=== PATIENT | female | born 1935 | race Caucasian/White ===

== ENCOUNTER 2016-08-13 16:35 | Inpatient (IN) | payer MEDICARE, OTHER ==
[2016-08-13] MEDS ORDERED: HYDROCODONE/ACETAMINOPHEN 5-325 MG TABLET PO ONE (16:41)
--- NOTE | 2016-08-13 17:00 | ER Document Report ---
ED General - General Stated Complaint: LEG PAIN Mode of Arrival: Medic Information source: Patient, Parent Notes: 81 yr old female presents with bruising to the left thigh of 1 day duration and hip pain. pt from care facility, diagnosed iwth uti 5 days prior, pthas not ambulated since. pt is dnr TRAVEL OUTSIDE OF THE [place] IN LAST 30 DAYS: No - HPI Onset: Last week Onset/Duration: Persistent Quality of pain: Achy Severity: Mild Pain Level: 1 Associated symptoms: None Exacerbated by: Movement Relieved by: Denies Similar symptoms previously: Yes Recently seen / treated by doctor: Yes - Related Data Allergies/Adverse Reactions: No Known Allergies Allergy (Verified 08/08/16 09:13) Past Medical History - Social History Smoking Status: Never Smoker Cigarette use (# per day): No Chew tobacco use (# tins/day): No Smoking Education Provided: No Family History: Reviewed & Not Pertinent - Past Medical History Cardiac Medical History: Reports: Hx Hypertension Pulmonary Medical History: Reports: Hx Pneumonia Psychiatric Medical History: Reports: Hx Dementia Past Surgical History: Reports: Hx Cholecystectomy, Hx Hysterectomy - Immunizations Hx Diphtheria, Pertussis, Tetanus Vaccination: Yes Review of Systems - Review of Systems Notes: REVIEW OF SYSTEMS: CONSTITUTIONAL : Denies fever, chills, or sweats. Denies recent illness. EENT: Denies eye, ear, throat, or mouth pain or symptoms. Denies nasal or sinus congestion or discharge. Denies throat, tongue, or mouth swelling or difficulty swallowing. CARDIOVASCULAR: Denies chest pain. Denies palpitations or racing or irregular heart beat. Denies ankle edema. RESPIRATORY: Denies cough, cold, or chest congestion. Denies shortness of breath, difficulty breathing, or wheezing. GASTROINTESTINAL: Denies abdominal pain or distention. Denies nausea, vomiting , or diarrhea. Denies blood in vomitus, stools, or per rectum. Denies black, tarry stools. Denies constipation. GENITOURINARY: Denies difficulty urinating, painful urination, burning, frequency, blood in urine, or discharge. FEMALE GENITOURINARY: Denies vaginal bleeding, heavy or abnormal periods, irregular periods. Denies vaginal discharge or odor. MUSCULOSKELETAL: unable to ambulate SKIN: Denies rash, lesions or sores. HEMATOLOGIC : bruise of left thigh LYMPHATIC: Denies swollen, enlarged glands. NEUROLOGICAL: Denies confusion or altered mental status. Denies passing out or loss of consciousness. Denies dizziness or lightheadedness. Denies headache. Denies weakness or paralysis or loss of use of either side. Denies problems with gait or speech. Denies sensory loss, numbness, or tingling. Denies seizures. PSYCHIATRIC: Denies anxiety or stress. Denies depression, suicidal ideation, or homicidal ideation. ALL OTHER SYSTEMS REVIEWED AND NEGATIVE. Dictation was performed using [employer] voice recognition software PHYSICAL EXAMINATION: GENERAL: Well-appearing, well-nourished and in no acute distress. HEAD: Atraumatic, normocephalic. EYES: Pupils equal round and reactive to light, extraocular movements intact, conjunctiva are normal. ENT: Nares patent, oropharynx clear without exudates. Moist mucous membranes. NECK: Normal range of motion, supple without lymphadenopathy LUNGS: Breath sounds clear to auscultation bilaterally and equal. No wheezes rales or rhonchi. HEART: Regular rate and rhythm without murmurs ABDOMEN: Soft, nontender, nondistended abdomen. No guarding, no rebound. No masses appreciated. Female : deferred Musculoskeletal:externally rotated and shortened NEUROLOGICAL: Cranial nerves grossly intact. Normal speech, normal gait. Normal sensory, motor exams PSYCH: Normal mood, normal affect. SKIN: echymosis of the left thigh Physical Exam - Vital signs Vitals: Temp Pulse Resp BP Pulse Ox 98.4 F 86 18 122/47 L 96 08/13/16 16:52 08/13/16 16:52 08/13/16 16:52 08/13/16 16:52 08/13/16 16:52 Course - Re-evaluation Re-evalutation: 08/13/16 19:52 xray consistant with intertrochanteric fracture will admit ot hospitalist 08/13/16 19:54 Dr Ramirez ocnsulted - Vital Signs Vital signs: Temp Pulse Resp BP Pulse Ox 98.4 F 86 18 122/47 L 96 08/13/16 16:52 08/13/16 16:52 08/13/16 16:52 08/13/16 16:52 08/13/16 16:52 - Laboratory Result Diagrams: 08/13/16 19:36 08/13/16 18:55 Laboratory results interpreted by me: 08/13/16 08/13/16 18:55 19:36 WBC 12.8 H Hgb 11.6 L Hct 34.4 L RDW 14.7 H Seg Neutrophils % 79.2 H Lymphocytes % 10.3 L Absolute Neutrophils 10.1 H Sodium 151.5 H Chloride 118 H Carbon Dioxide 21 L BUN 65 H Creatinine 1.39 H Est GFR ( Amer) 44 L Est GFR (Non-Af Amer) 36 L Calcium 8.2 L AST 133 H ALT 67 H Total Protein 5.4 L Albumin 3.0 L - Diagnostic Test Radiology reviewed: Image reviewed, Reports reviewed Discharge - Discharge Clinical Impression: Weakness UTI (urinary tract infection) Qualifiers: Urinary tract infection type: site unspecified Hematuria presence: without hematuria Qualified Code(s): N39.0 - Urinary tract infection, site not specified Fracture of hip Qualifiers: Encounter type: initial encounter Fracture type: closed Laterality: left Qualified Code(s): S72.002A - Fracture of unspecified part of neck of left femur , initial encounter for closed fracture Condition: Stable Disposition: ADMITTED INPATIENT Admitting Provider: Hospitalist Unit Admitted: Telemetry Referrals: SETH FERNANDEZ MD [Primary Care Provider] - Follow up as needed
[2016-08-13 19:24] LABS: ALANINE AMINOTRANSFERASE 67 U/L (9-52); ALKALINE PHOSPHATASE 57 U/L (38-126); ANION GAP 13 (5-19); ASPARTATE AMINO TRANSFERASE 133 U/L (14-36); BILIRUBIN,TOTAL 1.3 mg/dL (0.2-1.3); BLOOD UREA NITROGEN 65 mg/dL (7-20); CALCIUM 8.2 mg/dL (8.4-10.2); CARBON DIOXIDE 21 mmol/L (22-30); CHLORIDE 118 mmol/L (98-107); CREATININE RESULT 1.39 mg/dL (0.52-1.25); GLUCOSE 100 mg/dL (75-110); POTASSIUM 4.1 mmol/L (3.6-5.0); SODIUM 151.5 mmol/L (137-145); TOTAL PROTEIN 5.4 g/dL (6.3-8.2)
[2016-08-13] MEDS ORDERED: NORMAL SALINE 1000 ML 1,000 ML IV ONE (19:32)
[2016-08-13 19:49] LABS: ABSOLUTE BASOPHILS # (AUTO) 0.1 10^3/uL (0.0-0.2); ABSOLUTE EOSINOPHILS # (AUTO) 0.1 10^3/uL (0.0-0.6); ABSOLUTE LYMPHOCYTES (AUTO) 1.3 10^3/uL (0.5-4.7); ABSOLUTE MONOCYTES (AUTO) 1.1 10^3/uL (0.1-1.4); ABSOLUTE NEUT (AUTO) 10.1 10^3/uL (1.7-8.2); BASOPHILS % (AUTO) 0.5 % (0-2); EOSINOPHILS % (AUTO) 1.1 % (0-6); HEMATOCRIT 34.4 % (36.0-47.0); HEMOGLOBIN 11.6 g/dL (12.0-15.5); HGB HCT DIFFERENCE 0.4; LYMPHOCYTES % (AUTO) 10.3 % (13-45); MEAN CORPUSCULAR HEMOGLOBIN 30.5 pg (27.0-33.4); MEAN CORPUSCULAR HGB CONC 33.6 g/dL (32.0-36.0); MEAN CORPUSCULAR VOLUME 91 fl (80-97); MONOCYTES % (AUTO) 8.9 % (3-13); RED BLOOD COUNT 3.79 10^6/uL (3.72-5.28); RED CELL DISTRIBUTION WIDTH 14.7 % (11.5-14.0); SEGMENTED NEUTROPHILS % (AUTO) 79.2 % (42-78); WHITE BLOOD COUNT 12.8 10^3/uL (4.0-10.5)
[2016-08-13] MEDS ORDERED: CEFTRIAXONE 1 GM/D5W RTU 50 ML IV ONE (19:55)
[2016-08-13] MEDS ORDERED: LORAZEPAM 1 MG TABLET PO PRN (20:32)
[2016-08-13] MEDS ORDERED: IPRATROPIUM/ALBUTEROL 0.5-2.5 MG/3 ML AMPUL NEB PRN (20:33)
[2016-08-13] MEDS ORDERED: MAGNESIUM HYDROXIDE SUSP 30 ML UDCUP PO PRN (20:33)
[2016-08-13] MEDS ORDERED: ACETAMINOPHEN 325 MG TABLET PO PRN (20:33)
[2016-08-13] MEDS ORDERED: ONDANSETRON HCL INJ/PF 4 MG/2 ML SDV IV PRN (20:33)
[2016-08-13] MEDS ORDERED: DEXTROSE 5%-1/2 NORMAL SALINE 1,000 ML IV SCH (20:45)
[2016-08-13] MEDS ORDERED: ERGOCALCIFEROL (VITAMIN D2) 50000 UNIT (1.25 MG) CAPSULE PO SCH (21:00)
--- NOTE | 2016-08-13 21:28 | EKG REPORT ---
SEVERITY:- BORDERLINE ECG - SINUS RHYTHM BORDERLINE LEFT AXIS DEVIATION BORDERLINE T ABNORMALITIES, ANTERIOR LEADS : Confirmed by: Stefan Galvan MD 13-Aug-2016 21:27:17
[2016-08-13 23:02] LABS: AMORPHOUS SEDIMENT,URINE TRACE /HPF; APPEARANCE,URINE CLOUDY; BILIRUBIN,URINE NEGATIVE (NEGATIVE); GLUCOSE, URINE NEGATIVE (NEGATIVE); KETONES,URINE NEGATIVE (NEGATIVE); LEUKOCYTE ESTERASE,URINE NEGATIVE (NEGATIVE); NITRITE,URINE NEGATIVE (NEGATIVE); PROTEIN,URINE NEGATIVE (NEGATIVE); URINE SPECIFIC GRAVITY 1.028; UROBILINOGEN,URINE NEGATIVE mg/dL (<2.0)
[2016-08-13] MEDS: TRAZODONE HCL 50 MG TABLET PO SCH (23:12)
[2016-08-13] MEDS: DONEPEZIL HCL 5 MG TABLET PO SCH (23:12)
[2016-08-13] MEDS: MEMANTINE HCL 10 MG TABLET PO SCH (23:13)
[2016-08-13] MEDS: HEPARIN SOD (PORCINE) 5,000 UNIT/ML 1 ML SYRINGE SUBCUT SCH (23:13)
[2016-08-14] MEDS ORDERED: INFLUENZA ADLT QUAD (36MOS+) 2016-17 VAC 0.5 ML SYR IM PRN (03:31)
--- NOTE | 2016-08-14 05:42 | PDOC H&P ---
History of Present Illness Admission Date/PCP: 08/13/16 20:33 SETH FERNANDEZ Patient complains of: Left leg pain History of Present Illness: TOYA DINERO is a 81 year old female who is a long-term snf resident , with a history of end-stage dementia essentially nonverbal requiring 100% assistance in ADLs, who at baseline would ambulate but is recently seen in the emergency room approximate 5 days ago for a urinary tract infection and has not subsequently been witnessed to ambulate and found by snf staff today with large ecchymosis and pain localized to the left thigh. Brought to the emergency room for evaluation she's found to have a left-sided hip fracture, mild rhabdomyolysis hypernatremia dehydration and acute renal failure. And is referred to the hospitalist for admission. The patient's daughter is at bedside able to provide history and verifies DO NOT RESUSCITATE status Past Medical History Cardiac Medical History: Reports: Hypertension Pulmonary Medical History: Reports: Pneumonia Psychiatric Medical History: Reports: Dementia Past Surgical History Past Surgical History: Reports: Cholecystectomy, Hysterectomy Social History Smoking Status: Never Smoker Frequency of Alcohol Use: None Hx Recreational Drug Use: No Hx Prescription Drug Abuse: No - Advance Directive Resuscitation Status: Do Not Resuscitate Family History Family History: Other - Dementia Parental Family History Reviewed: Yes Children Family History Reviewed: Yes Sibling(s) Family History Reviewed.: Yes Medication/Allergy Home Medications: Donepezil HCl [Aricept] 10 mg PO QHS 11/11/11 Ergocalciferol (Vitamin D2) [Vitamin D] 50,000 unit PO ASDIR PRN 11/11/11 Memantine HCl [Namenda 10 Mg Tablet] 10 mg PO BID 11/11/11 Cephalexin Monohydrate [Keflex 500 mg Capsule] 500 mg PO BID 10 Days 08/08/16 Cyanocobalamin (Vitamin B-12) [B-12] 500 mcg PO DAILY 08/13/16 Lisinopril 20 mg PO DAILY 08/13/16 Allergies/Adverse Reactions: No Known Allergies Allergy (Verified 08/08/16 09:13) Review of Systems ROS unobtainable: Due to mental status Physical Exam Vital Signs: Temp Pulse Resp BP Pulse Ox 98.3 F 69 15 106/41 L 93 08/14/16 00:22 08/14/16 00:22 08/14/16 00:22 08/14/16 00:22 08/14/16 00:22 Intake & Output 08/12/16 08/13/16 08/14/16 11:59 11:59 11:59 Weight 81.9 kg General appearance: PRESENT: mild distress Head exam: PRESENT: atraumatic, normocephalic Eye exam: PRESENT: conjunctiva pink, EOMI, PERRLA. ABSENT: scleral icterus Ear exam: PRESENT: normal external ear exam Mouth exam: PRESENT: moist, tongue midline Neck exam: ABSENT: carotid bruit, JVD, lymphadenopathy, thyromegaly Respiratory exam: PRESENT: clear to auscultation montse. ABSENT: rales, rhonchi, wheezes Cardiovascular exam: PRESENT: RRR. ABSENT: diastolic murmur, rubs, systolic murmur Pulses: PRESENT: normal dorsalis pedis pul Vascular exam: PRESENT: normal capillary refill GI/Abdominal exam: PRESENT: normal bowel sounds, soft. ABSENT: distended, guarding, mass, organolmegaly, rebound, tenderness Rectal exam: PRESENT: deferred Extremities exam: PRESENT: other - Left thigh ecchymosis and pain. external rotation of left leg Neurological exam: PRESENT: alert, CN II-XII grossly intact. ABSENT: oriented to person, oriented to place, oriented to time, oriented to situation Psychiatric exam: PRESENT: other - Sedated after analgesic Skin exam: PRESENT: dry. ABSENT: abrasion, cyanosis, jaundice, skin tears Adult Front & Back Image: 1 - Ecchymosis Results Laboratory Results: 08/13/16 22:09 Urine Color DARK YELLOW Urine Appearance CLOUDY Urine pH 5.0 Ur Specific [place] 1.028 Urine Protein NEGATIVE Urine Glucose (UA) NEGATIVE Urine Ketones NEGATIVE Urine Blood NEGATIVE Urine Nitrite NEGATIVE Ur Leukocyte Esterase NEGATIVE Urine WBC (Auto) 3 Impressions: Chest X-Ray 08/13/16 00:00 IMPRESSION: NO ACUTE RADIOGRAPHIC FINDING IN THE CHEST. Femur X-Ray 08/13/16 16:40 IMPRESSION: INTERTROCHANTERIC FEMUR FRACTURE LEFT HIP. Hip X-Ray 08/13/16 16:40 IMPRESSION: INTERTROCHANTERIC FEMUR FRACTURE LEFT HIP. Assessment & Plan - Diagnosis (1) Hip fracture Qualifiers: Encounter type: initial encounter Fracture type: closed Laterality : left Qualified Code(s): S72.002A - Fracture of unspecified part of neck of left femur, initial encounter for closed fracture Is this a current diagnosis for this admission?: YesPlan: Symptomatically management and orthopedic consultation (2) Acute renal failure Is this a current diagnosis for this admission?: YesPlan: Appears prerenal I'll avoid nephrotoxic meds and doses ,initiated fluid challenge and reevaluate chemistry (3) Hypernatremia Plan: Secondary to prerenal is a PABLITO a patient is unable to meet her nutritional or fluid requirements by mouth. She'll receive half-normal saline and reevaluation of chemistry every 12 hours (4) Dementia Is this a current diagnosis for this admission?: YesPlan: Advanced dementia unable to participate in physical therapy at times requiring sedation for severe delirium at baseline - Time Time Spent: 50 to 70 Minutes
[2016-08-14 05:54] LABS: ABSOLUTE EOSINOPHILS # (AUTO) 0.2 10^3/uL (0.0-0.6); ABSOLUTE LYMPHOCYTES (AUTO) 1.5 10^3/uL (0.5-4.7); ABSOLUTE NEUT (AUTO) 7.6 10^3/uL (1.7-8.2); BASOPHILS % (AUTO) 0.4 % (0-2); EOSINOPHILS % (AUTO) 2.4 % (0-6); HEMOGLOBIN 10.9 g/dL (12.0-15.5); HGB HCT DIFFERENCE 0.7; LYMPHOCYTES % (AUTO) 14.5 % (13-45); MEAN CORPUSCULAR HEMOGLOBIN 31.3 pg (27.0-33.4); MEAN CORPUSCULAR HGB CONC 34.1 g/dL (32.0-36.0); MEAN CORPUSCULAR VOLUME 92 fl (80-97); MONOCYTES % (AUTO) 9.3 % (3-13); RED BLOOD COUNT 3.49 10^6/uL (3.72-5.28); RED CELL DISTRIBUTION WIDTH 14.8 % (11.5-14.0); SEGMENTED NEUTROPHILS % (AUTO) 73.4 % (42-78); WHITE BLOOD COUNT 10.4 10^3/uL (4.0-10.5)
[2016-08-14] MEDS: HEPARIN SOD (PORCINE) 5,000 UNIT/ML 1 ML SYRINGE SUBCUT SCH ×3 (06:08→21:53)
[2016-08-14 06:28] LABS: ANION GAP 11 (5-19); BLOOD UREA NITROGEN 59 mg/dL (7-20); CALCIUM 7.5 mg/dL (8.4-10.2); CARBON DIOXIDE 24 mmol/L (22-30); CHLORIDE 112 mmol/L (98-107); CREATININE RESULT 1.23 mg/dL (0.52-1.25); GLUCOSE 94 mg/dL (75-110); POTASSIUM 3.7 mmol/L (3.6-5.0)
[2016-08-14] MEDS: VALSARTAN 40 MG TABLET PO SCH (11:24)
[2016-08-14] MEDS: CYANOCOBALAMIN (VITAMIN B-12) 1,000 MCG TABLET PO SCH (11:26)
[2016-08-14] MEDS: MEMANTINE HCL 10 MG TABLET PO SCH ×2 (11:27→21:52)
[2016-08-14] MEDS: DOCUSATE SODIUM 100 MG CAPSULE PO SCH ×2 (11:27→18:58)
--- NOTE | 2016-08-14 11:50 | PDOC PROGRESS REPORT ---
Subjective Progress Note for:: 08/14/16 Subjective:: Patient seen on morning rounds. She is presently resting comfortably in bed. Her daughter is at bedside. She does not respond to questions verbally when asked. Unable to do review of systems due to patient's mentation. Patient has not been seen by orthopedic surgery yet. Physical Exam Vital Signs: Temp Pulse Resp BP Pulse Ox 98.3 F 62 16 106/41 L 95 08/14/16 00:22 08/14/16 09:35 08/14/16 09:35 08/14/16 00:22 08/14/16 09:35 Intake & Output 08/13/16 08/14/16 08/15/16 06:59 06:59 06:59 Weight 82.6 kg General appearance: PRESENT: no acute distress, well-developed, well-nourished Head exam: PRESENT: atraumatic Eye exam: PRESENT: conjunctiva pink, EOMI, PERRLA. ABSENT: scleral icterus Ear exam: PRESENT: normal external ear exam Mouth exam: PRESENT: moist, tongue midline Neck exam: ABSENT: carotid bruit, JVD, lymphadenopathy, thyromegaly Respiratory exam: PRESENT: clear to auscultation montse. ABSENT: rales, rhonchi, wheezes Cardiovascular exam: PRESENT: RRR. ABSENT: diastolic murmur, rubs, systolic murmur Pulses: PRESENT: normal dorsalis pedis pul Vascular exam: PRESENT: normal capillary refill GI/Abdominal exam: PRESENT: normal bowel sounds, soft. ABSENT: distended, guarding, mass, organolmegaly, rebound, tenderness Rectal exam: PRESENT: deferred Extremities exam: PRESENT: other - Bruising over medial left thigh which is resolving. Left lower extremity externally rotated. ABSENT: calf tenderness, clubbing, pedal edema Neurological exam: PRESENT: alert, altered, CN II-XII grossly intact, other - Patient is not responding verbally. Daughter states at times she does Psychiatric exam: PRESENT: appropriate affect, normal mood. ABSENT: homicidal ideation, suicidal ideation Skin exam: PRESENT: dry, intact, warm. ABSENT: cyanosis, rash Results Laboratory Results: 08/14/16 05:20 08/14/16 05:20 08/13/16 08/14/16 08/14/16 22:09 05:20 05:20 WBC 10.4 RBC 3.49 L Hgb 10.9 L Hct 32.0 L MCV 92 MCH 31.3 MCHC 34.1 RDW 14.8 H Plt Count 172 Seg Neutrophils % 73.4 Lymphocytes % 14.5 Monocytes % 9.3 Eosinophils % 2.4 Basophils % 0.4 Absolute Neutrophils 7.6 Absolute Lymphocytes 1.5 Absolute Monocytes 1.0 Absolute Eosinophils 0.2 Absolute Basophils 0.0 Sodium 147.0 H Potassium 3.7 Chloride 112 H Carbon Dioxide 24 Anion Gap 11 BUN 59 H Creatinine 1.23 Est GFR ( Amer) 51 L Est GFR (Non-Af Amer) 42 L Glucose 94 Calcium 7.5 L Urine Color DARK YELLOW Urine Appearance CLOUDY Urine pH 5.0 Ur Specific [place] 1.028 Urine Protein NEGATIVE Urine Glucose (UA) NEGATIVE Urine Ketones NEGATIVE Urine Blood NEGATIVE Urine Nitrite NEGATIVE Ur Leukocyte Esterase NEGATIVE Urine WBC (Auto) 3 08/14/16 10:30 CK-MB (CK-2) 3.67 Impressions: Chest X-Ray 08/13/16 00:00 IMPRESSION: NO ACUTE RADIOGRAPHIC FINDING IN THE CHEST. Femur X-Ray 08/13/16 16:40 IMPRESSION: INTERTROCHANTERIC FEMUR FRACTURE LEFT HIP. Hip X-Ray 08/13/16 16:40 IMPRESSION: INTERTROCHANTERIC FEMUR FRACTURE LEFT HIP. Assessment & Plan - Diagnosis (1) Fracture, intertrochanteric, left femur Qualifiers: Encounter type: initial encounter Fracture type: closed Qualified Code(s): S72.142A - Displaced intertrochanteric fracture of left femur , initial encounter for closed fracture Is this a current diagnosis for this admission?: YesPlan: Awaiting orthopedic referral. Patient does not appear to be in pain at the present time. (2) Hypernatremia Is this a current diagnosis for this admission?: YesPlan: Appears to be from dehydration. Hydrating with D51//2 NS will continue to monitor. 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
--- NOTE | 2016-08-14 13:08 | PDOC CONSULTATION ---
Consultation Consult Date: 08/14/16 Attending physician:: ALONDRA COLE Consult reason:: Left hip fx History of Present Illness Admission Date/PCP: 08/13/16 20:33 SETH FERNANDEZ Patient complains of: left hip pain History of Present Illness: TOYA DINERO is a 81 year old female who is a long-term alf resident , with a history of end-stage dementia essentially nonverbal requiring 100% assistance in ADLs. According to the patient's son she was ambulatory but required maximal assistance and has not independently for years. Patient was then found by the alf staff with bruising and pain localized to the left hip. She was subsequently brought to the emergency room for evaluation and found to have a left-sided hip fracture. Patient was admitted by the hospitalist. Unable to obtain full history of present illness given patient's mental status. Past Medical History Cardiac Medical History: Reports: Hypertension Pulmonary Medical History: Reports: Pneumonia Psychiatric Medical History: Reports: Dementia Past Surgical History Past Surgical History: Reports: Cholecystectomy, Hysterectomy Social History Smoking Status: Never Smoker Frequency of Alcohol Use: None Hx Recreational Drug Use: No Hx Prescription Drug Abuse: No - Advance Directive Resuscitation Status: Do Not Resuscitate Family History Family History: Other - Dementia Parental Family History Reviewed: No Children Family History Reviewed: Unknown Sibling(s) Family History Reviewed.: Unknown Medication/Allergy Home Medications: Donepezil HCl [Aricept] 10 mg PO QHS 11/11/11 Ergocalciferol (Vitamin D2) [Vitamin D] 50,000 unit PO ASDIR PRN 11/11/11 Memantine HCl [Namenda 10 Mg Tablet] 10 mg PO BID 11/11/11 Cephalexin Monohydrate [Keflex 500 mg Capsule] 500 mg PO BID 10 Days 08/08/16 Cyanocobalamin (Vitamin B-12) [B-12] 500 mcg PO DAILY 08/13/16 Lisinopril 20 mg PO DAILY 08/13/16 Allergies/Adverse Reactions: No Known Allergies Allergy (Verified 08/08/16 09:13) Review of Systems ROS unobtainable: Due to mental status Physical Exam Vital Signs: Temp Pulse Resp BP Pulse Ox 98.3 F 62 16 106/41 L 95 08/14/16 00:22 08/14/16 09:35 08/14/16 09:35 08/14/16 00:22 08/14/16 09:35 Intake & Output 08/13/16 08/14/16 08/15/16 06:59 06:59 06:59 Weight 82.6 kg General appearance: PRESENT: no acute distress, thin Head exam: PRESENT: atraumatic, normocephalic Eye exam: PRESENT: EOMI Ear exam: PRESENT: normal external ear exam Mouth exam: PRESENT: dry mucosa Teeth exam: PRESENT: poor dentation Respiratory exam: PRESENT: unlabored Cardiovascular exam: PRESENT: RRR Pulses: PRESENT: normal dorsalis pedis pul Vascular exam: PRESENT: normal capillary refill GI/Abdominal exam: PRESENT: soft Musculoskeletal exam: PRESENT: other - Left lower extremity: Shortened externally rotated. Notable ecchymosis throughout the thigh. Compartments soft and compressible no sign of compartment syndrome. Unable to elicit pain with flexion or internal rotation. Minimal pain with range of motion. Does have pain with terminal internal rotation. Neurological exam: PRESENT: other - Disoriented to time, place and situation Results Laboratory Results: 08/14/16 05:20 08/14/16 05:20 08/13/16 08/14/16 08/14/16 22:09 05:20 05:20 WBC 10.4 RBC 3.49 L Hgb 10.9 L Hct 32.0 L MCV 92 MCH 31.3 MCHC 34.1 RDW 14.8 H Plt Count 172 Seg Neutrophils % 73.4 Lymphocytes % 14.5 Monocytes % 9.3 Eosinophils % 2.4 Basophils % 0.4 Absolute Neutrophils 7.6 Absolute Lymphocytes 1.5 Absolute Monocytes 1.0 Absolute Eosinophils 0.2 Absolute Basophils 0.0 Sodium 147.0 H Potassium 3.7 Chloride 112 H Carbon Dioxide 24 Anion Gap 11 BUN 59 H Creatinine 1.23 Est GFR ( Amer) 51 L Est GFR (Non-Af Amer) 42 L Glucose 94 Calcium 7.5 L Urine Color DARK YELLOW Urine Appearance CLOUDY Urine pH 5.0 Ur Specific [place] 1.028 Urine Protein NEGATIVE Urine Glucose (UA) NEGATIVE Urine Ketones NEGATIVE Urine Blood NEGATIVE Urine Nitrite NEGATIVE Ur Leukocyte Esterase NEGATIVE Urine WBC (Auto) 3 Impressions: Chest X-Ray 08/13/16 00:00 IMPRESSION: NO ACUTE RADIOGRAPHIC FINDING IN THE CHEST. Femur X-Ray 08/13/16 16:40 IMPRESSION: INTERTROCHANTERIC FEMUR FRACTURE LEFT HIP. Hip X-Ray 08/13/16 16:40 IMPRESSION: INTERTROCHANTERIC FEMUR FRACTURE LEFT HIP. Assessment & Plan - Diagnosis (1) Fracture, intertrochanteric, left femur Qualifiers: Encounter type: initial encounter Fracture type: closed Qualified Code(s): S72.142A - Displaced intertrochanteric fracture of left femur , initial encounter for closed fracture Is this a current diagnosis for this admission?: YesPlan: I have discussed the case with the patient's family given the patient's dementia and activity surgical treatment will be indicated for pain relief and likely not function. Thus the fact that she has minimal to no discomfort with hip manipulation I do not feel surgical intervention is likely beneficial in this instance however if we have her evaluated by physical therapy and he noticed significant pain limiting ability to perform transfers consideration can made for surgical intervention at that time. Current plan is to proceed with conservative treatment and nonoperative management.
[2016-08-14] MEDS: TRAZODONE HCL 50 MG TABLET PO SCH (21:53)
[2016-08-14] MEDS: DONEPEZIL HCL 5 MG TABLET PO SCH (21:53)
[2016-08-15 04:41] LABS: ABSOLUTE EOSINOPHILS # (AUTO) 0.3 10^3/uL (0.0-0.6); ABSOLUTE LYMPHOCYTES (AUTO) 1.6 10^3/uL (0.5-4.7); ABSOLUTE MONOCYTES (AUTO) 0.9 10^3/uL (0.1-1.4); ABSOLUTE NEUT (AUTO) 6.8 10^3/uL (1.7-8.2); BASOPHILS % (AUTO) 0.4 % (0-2); HEMATOCRIT 28.9 % (36.0-47.0); HEMOGLOBIN 9.9 g/dL (12.0-15.5); HGB HCT DIFFERENCE 0.8; MEAN CORPUSCULAR HEMOGLOBIN 31.1 pg (27.0-33.4); MEAN CORPUSCULAR HGB CONC 34.2 g/dL (32.0-36.0); MEAN CORPUSCULAR VOLUME 91 fl (80-97); MONOCYTES % (AUTO) 8.9 % (3-13); RED BLOOD COUNT 3.18 10^6/uL (3.72-5.28); RED CELL DISTRIBUTION WIDTH 14.5 % (11.5-14.0); SEGMENTED NEUTROPHILS % (AUTO) 70.7 % (42-78); WHITE BLOOD COUNT 9.6 10^3/uL (4.0-10.5)
[2016-08-15 05:09] LABS: ANION GAP 8 (5-19); CALCIUM 7.5 mg/dL (8.4-10.2); CARBON DIOXIDE 26 mmol/L (22-30); CHLORIDE 109 mmol/L (98-107); CREATININE RESULT 0.99 mg/dL (0.52-1.25); GLUCOSE 95 mg/dL (75-110); POTASSIUM 3.7 mmol/L (3.6-5.0); SODIUM 142.7 mmol/L (137-145)
[2016-08-15 05:30] LABS: BLOOD UREA NITROGEN 35 mg/dL (7-20)
[2016-08-15] MEDS: HEPARIN SOD (PORCINE) 5,000 UNIT/ML 1 ML SYRINGE SUBCUT SCH ×3 (06:10→21:57)
--- NOTE | 2016-08-15 07:22 | PDOC PROGRESS REPORT ---
Subjective Progress Note for:: 08/15/16 Subjective:: Patient seen and evaluated this morning. Lying in bed comfortably. Family at bedside. He states she has not been having any pain or discomfort. Has yet to undergo physical therapy. Physical Exam Vital Signs: Temp Pulse Resp BP Pulse Ox 98.6 F 67 20 119/57 L 93 08/15/16 04:00 08/15/16 04:00 08/15/16 04:00 08/15/16 04:00 08/15/16 04:00 Intake & Output 08/14/16 08/15/16 08/16/16 06:59 06:59 06:59 Intake Total 2200 Balance 2200 Weight 82.6 kg Musculoskeletal exam: PRESENT: other - Left lower extremity shortened and externally rotated. Negative logroll. No pain with range of motion. Cap refill less than 2 seconds. Unable to assess neurologic status secondary to patient's mental status. Results Laboratory Results: 08/15/16 04:29 08/15/16 04:29 08/15/16 08/15/16 04:29 04:29 WBC 9.6 RBC 3.18 L Hgb 9.9 L Hct 28.9 L MCV 91 MCH 31.1 MCHC 34.2 RDW 14.5 H Plt Count 153 Seg Neutrophils % 70.7 Lymphocytes % 17.0 Monocytes % 8.9 Eosinophils % 3.0 Basophils % 0.4 Absolute Neutrophils 6.8 Absolute Lymphocytes 1.6 Absolute Monocytes 0.9 Absolute Eosinophils 0.3 Absolute Basophils 0.0 Sodium 142.7 Potassium 3.7 Chloride 109 H Carbon Dioxide 26 Anion Gap 8 BUN 35 H D Creatinine 0.99 Est GFR ( Amer) > 60 Est GFR (Non-Af Amer) 54 L Glucose 95 Calcium 7.5 L 08/14/16 10:30 CK-MB (CK-2) 3.67 Impressions: Chest X-Ray 08/13/16 00:00 IMPRESSION: NO ACUTE RADIOGRAPHIC FINDING IN THE CHEST. Femur X-Ray 08/13/16 16:40 IMPRESSION: INTERTROCHANTERIC FEMUR FRACTURE LEFT HIP. Hip X-Ray 08/13/16 16:40 IMPRESSION: INTERTROCHANTERIC FEMUR FRACTURE LEFT HIP. Assessment & Plan - Diagnosis (1) Fracture, intertrochanteric, left femur Qualifiers: Encounter type: initial encounter Fracture type: closed Qualified Code(s): S72.142A - Displaced intertrochanteric fracture of left femur , initial encounter for closed fracture Is this a current diagnosis for this admission?: YesPlan: Patient continues to demonstrate no discomfort in her left hip despite intertrochanteric fracture at this point I have recommended nonoperative treatment given her mental status and nonambulatory status compliant with her lack of discomfort. I have discussed this in detail with the family who are in agreement with the current plan.
[2016-08-15] MEDS: DOCUSATE SODIUM 100 MG CAPSULE PO SCH ×3 (10:31→22:00)
[2016-08-15] MEDS: CYANOCOBALAMIN (VITAMIN B-12) 1,000 MCG TABLET PO SCH (10:31)
[2016-08-15] MEDS: MEMANTINE HCL 10 MG TABLET PO SCH ×2 (10:31→22:00)
[2016-08-15] MEDS: VALSARTAN 40 MG TABLET PO SCH (10:32)
--- NOTE | 2016-08-15 11:57 | PDOC PROGRESS REPORT ---
Subjective Progress Note for:: 08/15/16 Subjective:: Patient seen on morning rounds. She is presently resting comfortably in bed. Her daughter is at bedside. She does not respond to questions verbally when asked. Unable to do review of systems due to patient's mentation. Patient was seen by Dr Ramirez, orthopedic surgery, and wants patient to have PT and see if she has any pain. She presently does not appear to have at rest Physical Exam Vital Signs: Temp Pulse Resp BP Pulse Ox 97.2 F 72 16 133/50 H 95 08/15/16 08:00 08/15/16 09:30 08/15/16 09:30 08/15/16 08:00 08/15/16 09:30 Intake & Output 08/14/16 08/15/16 08/16/16 06:59 06:59 06:59 Intake Total 2300 Output Total 150 Balance 2150 Weight 82.6 kg 83.3 kg General appearance: PRESENT: no acute distress, obese, well-developed, well- nourished Head exam: PRESENT: atraumatic, normocephalic Eye exam: PRESENT: conjunctiva pink, EOMI, PERRLA. ABSENT: scleral icterus Ear exam: PRESENT: normal external ear exam Mouth exam: PRESENT: moist, tongue midline Neck exam: ABSENT: carotid bruit, JVD, lymphadenopathy, thyromegaly Respiratory exam: PRESENT: clear to auscultation montse. ABSENT: rales, rhonchi, wheezes Cardiovascular exam: PRESENT: RRR. ABSENT: diastolic murmur, rubs, systolic murmur Pulses: PRESENT: normal dorsalis pedis pul Vascular exam: PRESENT: normal capillary refill GI/Abdominal exam: PRESENT: normal bowel sounds, soft. ABSENT: distended, guarding, mass, organolmegaly, rebound, tenderness Rectal exam: PRESENT: deferred Extremities exam: PRESENT: calf tenderness Neurological exam: PRESENT: altered, awake, CN II-XII grossly intact. ABSENT: motor sensory deficit Psychiatric exam: PRESENT: appropriate affect, normal mood. ABSENT: homicidal ideation, suicidal ideation Skin exam: PRESENT: dry, intact, warm. ABSENT: cyanosis, rash Results Laboratory Results: 08/15/16 04:29 08/15/16 04:29 08/15/16 08/15/16 04:29 04:29 WBC 9.6 RBC 3.18 L Hgb 9.9 L Hct 28.9 L MCV 91 MCH 31.1 MCHC 34.2 RDW 14.5 H Plt Count 153 Seg Neutrophils % 70.7 Lymphocytes % 17.0 Monocytes % 8.9 Eosinophils % 3.0 Basophils % 0.4 Absolute Neutrophils 6.8 Absolute Lymphocytes 1.6 Absolute Monocytes 0.9 Absolute Eosinophils 0.3 Absolute Basophils 0.0 Sodium 142.7 Potassium 3.7 Chloride 109 H Carbon Dioxide 26 Anion Gap 8 BUN 35 H D Creatinine 0.99 Est GFR ( Amer) > 60 Est GFR (Non-Af Amer) 54 L Glucose 95 Calcium 7.5 L 08/14/16 03:10 Nasophary ([facility] Only) MRSA Surveillance Culture - Final NO MRSA RECOVERED 08/14/16 08/15/16 10:30 08:20 CK-MB (CK-2) 3.67 2.06 Impressions: Chest X-Ray 08/13/16 00:00 IMPRESSION: NO ACUTE RADIOGRAPHIC FINDING IN THE CHEST. Femur X-Ray 08/13/16 16:40 IMPRESSION: INTERTROCHANTERIC FEMUR FRACTURE LEFT HIP. Hip X-Ray 08/13/16 16:40 IMPRESSION: INTERTROCHANTERIC FEMUR FRACTURE LEFT HIP. Assessment & Plan - Diagnosis (1) Fracture, intertrochanteric, left femur Qualifiers: Encounter type: initial encounter Fracture type: closed Qualified Code(s): S72.142A - Displaced intertrochanteric fracture of left femur , initial encounter for closed fracture Is this a current diagnosis for this admission?: Yes (2) Hypernatremia Is this a current diagnosis for this admission?: YesPlan: Appears to be from dehydration. Hydrating with D51//2 NS will continue to monitor. 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 Transfuse if hgb<8.0 - Time Time Spent with patient: 25-34 minutes Critical Time spent with patient: 15-24 minutes Medications reviewed and adjusted accordingly: Yes Anticipated discharge: SNF
[2016-08-15] MEDS ORDERED: LORAZEPAM 1 MG TABLET PO PRN (12:57)
[2016-08-15] MEDS ORDERED: POLYETHYLENE GLYCOL 3350 POWDER 17 GM/1 PACKET PO PRN (19:03)
[2016-08-15] MEDS: TRAZODONE HCL 50 MG TABLET PO SCH (22:00)
[2016-08-15] MEDS: DONEPEZIL HCL 5 MG TABLET PO SCH (22:00)
[2016-08-16 06:57] LABS: ABSOLUTE EOSINOPHILS # (AUTO) 0.2 10^3/uL (0.0-0.6); ABSOLUTE LYMPHOCYTES (AUTO) 1.4 10^3/uL (0.5-4.7); ABSOLUTE MONOCYTES (AUTO) 0.8 10^3/uL (0.1-1.4); ABSOLUTE NEUT (AUTO) 7.3 10^3/uL (1.7-8.2); BASOPHILS % (AUTO) 0.3 % (0-2); EOSINOPHILS % (AUTO) 2.3 % (0-6); HEMATOCRIT 30.2 % (36.0-47.0); HEMOGLOBIN 10.3 g/dL (12.0-15.5); HGB HCT DIFFERENCE 0.7; LYMPHOCYTES % (AUTO) 14.4 % (13-45); MEAN CORPUSCULAR HEMOGLOBIN 30.8 pg (27.0-33.4); MEAN CORPUSCULAR HGB CONC 34.2 g/dL (32.0-36.0); MEAN CORPUSCULAR VOLUME 90 fl (80-97); RED BLOOD COUNT 3.35 10^6/uL (3.72-5.28); RED CELL DISTRIBUTION WIDTH 14.4 % (11.5-14.0); WHITE BLOOD COUNT 9.7 10^3/uL (4.0-10.5)
[2016-08-16] MEDS: HEPARIN SOD (PORCINE) 5,000 UNIT/ML 1 ML SYRINGE SUBCUT SCH ×3 (06:57→22:42)
[2016-08-16 07:03] LABS: ANION GAP 8 (5-19); BLOOD UREA NITROGEN 23 mg/dL (7-20); CALCIUM 7.9 mg/dL (8.4-10.2); CARBON DIOXIDE 26 mmol/L (22-30); CHLORIDE 106 mmol/L (98-107); CREATININE RESULT 0.81 mg/dL (0.52-1.25); GLUCOSE 91 mg/dL (75-110); POTASSIUM 3.6 mmol/L (3.6-5.0); SODIUM 140.2 mmol/L (137-145)
--- NOTE | 2016-08-16 08:20 | PDOC PROGRESS REPORT ---
Subjective Progress Note for:: 08/16/16 Subjective:: Patient seen and evaluated this morning. Family at bedside. They state she had minimal to no discomfort with physical therapy does have some difficulty maneuvering herself secondary to deconditioning. Physical Exam Vital Signs: Temp Pulse Resp BP Pulse Ox 98.9 F 72 20 114/32 L 100 08/16/16 04:00 08/16/16 04:00 08/16/16 04:00 08/16/16 04:00 08/16/16 04:00 Intake & Output 08/15/16 08/16/16 08/17/16 06:59 06:59 06:59 Intake Total 2300 693 Output Total 150 500 Balance 2150 193 Weight 83.3 kg 91.2 kg Musculoskeletal exam: PRESENT: other - Left lower extremity: short and internally rotated patient lying on her right side today. Mild pain with terminal flexion and internal rotation. No evidence of skin breakdown. Results Laboratory Results: 08/16/16 05:41 08/16/16 05:41 08/16/16 08/16/16 05:41 05:41 WBC 9.7 RBC 3.35 L Hgb 10.3 L Hct 30.2 L MCV 90 MCH 30.8 MCHC 34.2 RDW 14.4 H Plt Count 169 Seg Neutrophils % 75.0 Lymphocytes % 14.4 Monocytes % 8.0 Eosinophils % 2.3 Basophils % 0.3 Absolute Neutrophils 7.3 Absolute Lymphocytes 1.4 Absolute Monocytes 0.8 Absolute Eosinophils 0.2 Absolute Basophils 0.0 Sodium 140.2 Potassium 3.6 Chloride 106 Carbon Dioxide 26 Anion Gap 8 BUN 23 H Creatinine 0.81 Est GFR ( Amer) > 60 Est GFR (Non-Af Amer) > 60 Glucose 91 Calcium 7.9 L 08/14/16 03:10 Nasophary ([facility] Only) MRSA Surveillance Culture - Final NO MRSA RECOVERED 08/14/16 08/15/16 10:30 08:20 CK-MB (CK-2) 3.67 2.06 Impressions: Chest X-Ray 08/13/16 00:00 IMPRESSION: NO ACUTE RADIOGRAPHIC FINDING IN THE CHEST. Femur X-Ray 08/13/16 16:40 IMPRESSION: INTERTROCHANTERIC FEMUR FRACTURE LEFT HIP. Hip X-Ray 08/13/16 16:40 IMPRESSION: INTERTROCHANTERIC FEMUR FRACTURE LEFT HIP. Assessment & Plan - Diagnosis (1) Fracture, intertrochanteric, left femur Qualifiers: Encounter type: initial encounter Fracture type: closed Qualified Code(s): S72.142A - Displaced intertrochanteric fracture of left femur , initial encounter for closed fracture Is this a current diagnosis for this admission?: YesPlan: Patient was able to tolerate physical therapy with minimal to no discomfort thus I recommend proceeding with her current plan which is conservative treatment. Patient's family understands she will be nonambulatory which she was fairly nonambulatory prior to her most recent injury. Patient will continue with physical therapy. Patient may follow-up in the office with me in 2 weeks. Discharge to skilled facility when bed available
[2016-08-16] MEDS: DOCUSATE SODIUM 100 MG CAPSULE PO SCH ×2 (10:40→22:47)
[2016-08-16] MEDS: VALSARTAN 40 MG TABLET PO SCH (10:40)
[2016-08-16] MEDS: MEMANTINE HCL 10 MG TABLET PO SCH ×2 (10:41→22:48)
[2016-08-16] MEDS: CYANOCOBALAMIN (VITAMIN B-12) 1,000 MCG TABLET PO SCH (10:41)
--- NOTE | 2016-08-16 18:02 | PDOC PROGRESS REPORT ---
Subjective Progress Note for:: 08/16/16 Subjective:: Patient seen on morning rounds. She is presently resting comfortably in bed. Her daughter is at bedside. She does not respond to questions verbally when asked. Unable to do review of systems due to patient's mentation. Patient was seen by Dr Ramirez. Patient has had PT with no visible signs of pain with movement. She presently does not appear to have pain at rest Physical Exam Vital Signs: Temp Pulse Resp BP Pulse Ox 99.5 F 80 12 132/74 H 100 08/16/16 12:00 08/16/16 14:00 08/16/16 12:00 08/16/16 12:00 08/16/16 12:00 Intake & Output 08/15/16 08/16/16 08/17/16 06:59 06:59 06:59 Intake Total 2300 693 Output Total 150 500 Balance 2150 193 Weight 83.3 kg 91.2 kg General appearance: PRESENT: no acute distress, obese, well-developed, well- nourished Head exam: PRESENT: atraumatic, normocephalic Eye exam: PRESENT: conjunctiva pink, EOMI, PERRLA. ABSENT: scleral icterus Ear exam: PRESENT: normal external ear exam Mouth exam: PRESENT: dry mucosa Neck exam: ABSENT: carotid bruit, JVD, lymphadenopathy, thyromegaly Respiratory exam: PRESENT: clear to auscultation montse. ABSENT: rales, rhonchi, wheezes Pulses: PRESENT: normal dorsalis pedis pul GI/Abdominal exam: PRESENT: normal bowel sounds, soft. ABSENT: distended, guarding, mass, organolmegaly, rebound, tenderness Extremities exam: PRESENT: other - Left lower extremity shortened and externally rotated. ABSENT: calf tenderness, clubbing, pedal edema Neurological exam: PRESENT: altered, awake, CN II-XII grossly intact Psychiatric exam: PRESENT: flat affect Skin exam: PRESENT: dry, intact, warm. ABSENT: cyanosis, rash Results Laboratory Results: 08/16/16 05:41 08/16/16 05:41 08/16/16 08/16/16 05:41 05:41 WBC 9.7 RBC 3.35 L Hgb 10.3 L Hct 30.2 L MCV 90 MCH 30.8 MCHC 34.2 RDW 14.4 H Plt Count 169 Seg Neutrophils % 75.0 Lymphocytes % 14.4 Monocytes % 8.0 Eosinophils % 2.3 Basophils % 0.3 Absolute Neutrophils 7.3 Absolute Lymphocytes 1.4 Absolute Monocytes 0.8 Absolute Eosinophils 0.2 Absolute Basophils 0.0 Sodium 140.2 Potassium 3.6 Chloride 106 Carbon Dioxide 26 Anion Gap 8 BUN 23 H Creatinine 0.81 Est GFR ( Amer) > 60 Est GFR (Non-Af Amer) > 60 Glucose 91 Calcium 7.9 L 08/14/16 08/15/16 10:30 08:20 CK-MB (CK-2) 3.67 2.06 Impressions: Chest X-Ray 08/13/16 00:00 IMPRESSION: NO ACUTE RADIOGRAPHIC FINDING IN THE CHEST. Femur X-Ray 08/13/16 16:40 IMPRESSION: INTERTROCHANTERIC FEMUR FRACTURE LEFT HIP. Hip X-Ray 08/13/16 16:40 IMPRESSION: INTERTROCHANTERIC FEMUR FRACTURE LEFT HIP. Assessment & Plan - Diagnosis (1) Fracture, intertrochanteric, left femur Qualifiers: Encounter type: initial encounter Fracture type: closed Qualified Code(s): S72.142A - Displaced intertrochanteric fracture of left femur , initial encounter for closed fracture Is this a current diagnosis for this admission?: YesPlan: Dr Ramirez has seen patient for orthopedics. Patient is mostly non ambulatory prior to fracture. Patient has no obvious sign of pain at rest or with PT. He therefore will defer surgical repair. Family is in agreement. Patient will not be able to return to [facility]. Discharge planning working on placement. (2) Hypernatremia Is this a current diagnosis for this admission?: YesPlan: Appears to be from dehydration. 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 This has been stable - Time Time Spent with patient: 25-34 minutes Critical Time spent with patient: 15-24 minutes Medications reviewed and adjusted accordingly: Yes Anticipated discharge: SNF Within: when bed available
[2016-08-16] MEDS: TRAZODONE HCL 50 MG TABLET PO SCH (22:43)
[2016-08-16] MEDS: DONEPEZIL HCL 5 MG TABLET PO SCH (22:44)
[2016-08-17] MEDS: HEPARIN SOD (PORCINE) 5,000 UNIT/ML 1 ML SYRINGE SUBCUT SCH ×2 (06:01→15:08)
--- NOTE | 2016-08-17 09:47 | PDOC PROGRESS REPORT ---
Subjective Progress Note for:: 08/17/16 Subjective:: Patient seen and evaluated this morning. Lying in bed comfortably. Patient being fed by family who states she has been getting fairly well but has yet to have a bowel movement. Did not notice any discomfort or pain with therapy or manipulation. Physical Exam Vital Signs: Temp Pulse Resp BP Pulse Ox 98.5 F 73 20 103/57 L 95 08/17/16 09:18 08/17/16 09:18 08/17/16 09:18 08/17/16 09:18 08/17/16 09:18 Intake & Output 08/16/16 08/17/16 08/18/16 06:59 06:59 06:59 Intake Total 693 3500 Output Total 500 1950 Balance 193 1550 Weight 91.2 kg 87.4 kg General appearance: PRESENT: no acute distress Musculoskeletal exam: PRESENT: other - Left lower extremity: Shortened externally rotated. Negative logroll. No pain with range of motion. No evidence of skin breakdown. Results Laboratory Results: 08/16/16 05:41 08/16/16 05:41 08/14/16 08/15/16 10:30 08:20 CK-MB (CK-2) 3.67 2.06 Impressions: Chest X-Ray 08/13/16 00:00 IMPRESSION: NO ACUTE RADIOGRAPHIC FINDING IN THE CHEST. Femur X-Ray 08/13/16 16:40 IMPRESSION: INTERTROCHANTERIC FEMUR FRACTURE LEFT HIP. Hip X-Ray 08/13/16 16:40 IMPRESSION: INTERTROCHANTERIC FEMUR FRACTURE LEFT HIP. Assessment & Plan - Diagnosis (1) Fracture, intertrochanteric, left femur Qualifiers: Encounter type: initial encounter Fracture type: closed Qualified Code(s): S72.142A - Displaced intertrochanteric fracture of left femur , initial encounter for closed fracture Is this a current diagnosis for this admission?: YesPlan: Patient appears been tolerating her left intertrochanteric fracture with minimal to no discomfort despite nonoperative treatment. At this point we will continue the plan of conservative management with transfers only. Patient is orthopedic in stable for discharge to long-term facility when bed available
[2016-08-17] MEDS: CYANOCOBALAMIN (VITAMIN B-12) 1,000 MCG TABLET PO SCH (10:35)
[2016-08-17] MEDS: DOCUSATE SODIUM 100 MG CAPSULE PO SCH (10:35)
[2016-08-17] MEDS: MEMANTINE HCL 10 MG TABLET PO SCH (10:35)
[2016-08-17] MEDS: NA PHOS,M-B/NA PHOS,DI-BA (ADULT) 133 ML ENEMA PR PRN (10:35)
[2016-08-17] MEDS: VALSARTAN 40 MG TABLET PO SCH (10:35)
[2016-08-18] MEDS: DONEPEZIL HCL 5 MG TABLET PO SCH ×2 (01:15→23:45)
[2016-08-18] MEDS: TRAZODONE HCL 50 MG TABLET PO SCH ×2 (01:15→23:45)
[2016-08-18] MEDS: MEMANTINE HCL 10 MG TABLET PO SCH ×3 (01:15→23:45)
[2016-08-18] MEDS: DOCUSATE SODIUM 100 MG CAPSULE PO SCH ×3 (01:15→23:45)
[2016-08-18] MEDS: HEPARIN SOD (PORCINE) 5,000 UNIT/ML 1 ML SYRINGE SUBCUT SCH ×4 (02:51→23:45)
--- NOTE | 2016-08-18 08:39 | PDOC PROGRESS REPORT ---
Subjective Progress Note for:: 08/18/16 Subjective:: Patient seen and evaluated this morning. Lying in bed comfortably. Physical Exam Vital Signs: Temp Pulse Resp BP Pulse Ox 98.9 F 83 17 127/55 H 97 08/18/16 03:28 08/18/16 03:28 08/18/16 03:28 08/18/16 03:28 08/18/16 03:28 Intake & Output 08/17/16 08/18/16 08/19/16 06:59 06:59 06:59 Intake Total 3500 1200 Output Total 1950 2800 Balance 1550 -1600 Weight 87.4 kg 87.4 kg Neurological exam: PRESENT: alert, awake Results Laboratory Results: 08/16/16 05:41 08/16/16 05:41 08/14/16 08/15/16 10:30 08:20 CK-MB (CK-2) 3.67 2.06 Impressions: Chest X-Ray 08/13/16 00:00 IMPRESSION: NO ACUTE RADIOGRAPHIC FINDING IN THE CHEST. Femur X-Ray 08/13/16 16:40 IMPRESSION: INTERTROCHANTERIC FEMUR FRACTURE LEFT HIP. Hip X-Ray 08/13/16 16:40 IMPRESSION: INTERTROCHANTERIC FEMUR FRACTURE LEFT HIP. Assessment & Plan - Diagnosis (1) Fracture, intertrochanteric, left femur Qualifiers: Encounter type: initial encounter Fracture type: closed Qualified Code(s): S72.142A - Displaced intertrochanteric fracture of left femur , initial encounter for closed fracture Is this a current diagnosis for this admission?: YesPlan: At this point patient continues to demonstrate no discomfort at rest or physical therapy. Thus we will continue nonoperative treatment. Patient orthopedically cleared for discharge to skilled facility when bed available.
[2016-08-18] MEDS: CYANOCOBALAMIN (VITAMIN B-12) 1,000 MCG TABLET PO SCH (11:48)
[2016-08-18] MEDS: NA PHOS,M-B/NA PHOS,DI-BA (ADULT) 133 ML ENEMA PR PRN (11:54)
[2016-08-18] MEDS: VALSARTAN 40 MG TABLET PO SCH (11:54)
--- NOTE | 2016-08-18 13:53 | PDOC PROGRESS REPORT ---
Subjective Progress Note for:: 08/18/16 Subjective:: Patient appears quite comfortable , she is not verbalizing She is laying in bed; Physical Exam Vital Signs: Temp Pulse Resp BP Pulse Ox 98.7 F 79 18 134/47 H 96 08/18/16 11:58 08/18/16 11:58 08/18/16 11:58 08/18/16 11:58 08/18/16 11:58 Intake & Output 08/17/16 08/18/16 08/19/16 00:59 00:59 00:59 Intake Total 3500 600 600 Output Total 1950 1000 1800 Balance 1550 -400 -1200 Weight 91.2 kg 87.4 kg 87.4 kg General appearance: PRESENT: no acute distress, cooperative Eye exam: PRESENT: conjunctiva pink, EOMI, PERRLA. ABSENT: scleral icterus Mouth exam: PRESENT: moist, tongue midline Neck exam: ABSENT: carotid bruit, JVD, lymphadenopathy, thyromegaly Respiratory exam: PRESENT: clear to auscultation montse. ABSENT: rales, rhonchi, wheezes Pulses: PRESENT: normal dorsalis pedis pul Extremities exam: PRESENT: full ROM. ABSENT: calf tenderness - I, clubbing, pedal edema Neurological exam: PRESENT: awake Results Laboratory Results: 08/16/16 05:41 08/16/16 05:41 08/14/16 08/15/16 10:30 08:20 CK-MB (CK-2) 3.67 2.06 Impressions: Chest X-Ray 08/13/16 00:00 IMPRESSION: NO ACUTE RADIOGRAPHIC FINDING IN THE CHEST. Femur X-Ray 08/13/16 16:40 IMPRESSION: INTERTROCHANTERIC FEMUR FRACTURE LEFT HIP. Hip X-Ray 08/13/16 16:40 IMPRESSION: INTERTROCHANTERIC FEMUR FRACTURE LEFT HIP. Assessment & Plan - Diagnosis (1) Acute renal failure Is this a current diagnosis for this admission?: YesPlan: Resolved with hydration (2) Dementia Qualifiers: Dementia type: unspecified type Dementia behavioral disturbance: without behavioral disturbance Qualified Code(s): F03.90 - Unspecified dementia without behavioral disturbance Is this a current diagnosis for this admission?: YesPlan: Continue the present management (3) Fracture, intertrochanteric, left femur Qualifiers: Encounter type: initial encounter Fracture type: closed Qualified Code(s): S72.142A - Displaced intertrochanteric fracture of left femur , initial encounter for closed fracture Is this a current diagnosis for this admission?: YesPlan: Family opted for non-operative management initially They are rethinking the decision and may be considering intervention at this time We will speak with orthopedics (4) DVT prophylaxis Is this a current diagnosis for this admission?: Yes - Time Time Spent with patient: 25-34 minutes
[2016-08-19] MEDS: HEPARIN SOD (PORCINE) 5,000 UNIT/ML 1 ML SYRINGE SUBCUT SCH ×3 (05:55→21:07)
--- NOTE | 2016-08-19 09:08 | PDOC PROGRESS REPORT ---
Subjective Progress Note for:: 08/19/16 Subjective:: I was asked to see the patient by Dr. Edgar. Initially the family had made a decision to treat her left proximal femoral fracture nonoperatively. They have subsequently reassess the situation and are interested in proceeding with surgical intervention. Physical Exam Vital Signs: Temp Pulse Resp BP Pulse Ox 36.7 C 69 18 111/59 L 100 08/19/16 04:36 08/19/16 07:00 08/19/16 04:36 08/19/16 04:36 08/19/16 04:36 Intake & Output 08/18/16 08/19/16 08/20/16 06:59 06:59 06:59 Intake Total 1200 615 Output Total 2800 2170 Balance -1600 -1555 Weight 87.4 kg 87.9 kg General appearance: PRESENT: no acute distress Head exam: PRESENT: normocephalic Respiratory exam: PRESENT: unlabored Cardiovascular exam: PRESENT: RRR Pulses: PRESENT: +1 pedal pulses bilateral Extremities exam: PRESENT: other - Left lower extremity is shortened and actually rotated. Results Laboratory Results: 08/16/16 05:41 08/16/16 05:41 08/14/16 08/15/16 10:30 08:20 CK-MB (CK-2) 3.67 2.06 Impressions: Chest X-Ray 08/13/16 00:00 IMPRESSION: NO ACUTE RADIOGRAPHIC FINDING IN THE CHEST. Femur X-Ray 08/13/16 16:40 IMPRESSION: INTERTROCHANTERIC FEMUR FRACTURE LEFT HIP. Hip X-Ray 08/13/16 16:40 IMPRESSION: INTERTROCHANTERIC FEMUR FRACTURE LEFT HIP. Status: Imported from PACS Assessment & Plan - Diagnosis (1) Fracture, intertrochanteric, left femur Qualifiers: Encounter type: initial encounter Fracture type: closed Qualified Code(s): S72.142A - Displaced intertrochanteric fracture of left femur , initial encounter for closed fracture Is this a current diagnosis for this admission?: YesPlan: 81-year-old white female with significant issues of dementia who sustained a left intratrochanteric femur fracture. On . Initial decision was to proceed with nonoperative care. Patient's family has reconsider this and to improve her care and her quality of life that he now wished to proceed with intramedullary fixation. I have a long discussion with the daughter who holds the power of tax attorney. I've explained to her the nature of the surgical procedure and what would be expected intraoperatively and postoperatively. I' ve explained to them that this is a procedure that will entail approximately 3x1 inch incisions and will last approximately 25 minutes with an anticipated blood loss 150 mL. They're comfortable with this, wished to proceed. All attempt was scheduled was for tomorrow under choice anesthesia. I anticipate that Dr. Dove will provide preoperative clearance. - Time Time Spent with patient: 35 or more minutes Anticipated discharge: SNF Within: within 72 hours
[2016-08-19] MEDS: VALSARTAN 40 MG TABLET PO SCH (10:10)
[2016-08-19] MEDS: CYANOCOBALAMIN (VITAMIN B-12) 1,000 MCG TABLET PO SCH (10:11)
[2016-08-19] MEDS: MEMANTINE HCL 10 MG TABLET PO SCH ×2 (10:11→21:42)
[2016-08-19] MEDS: NA PHOS,M-B/NA PHOS,DI-BA (ADULT) 133 ML ENEMA PR PRN (10:12)
[2016-08-19] MEDS: DOCUSATE SODIUM 100 MG CAPSULE PO SCH ×2 (10:13→21:42)
--- NOTE | 2016-08-19 13:33 | PDOC PROGRESS REPORT ---
Subjective Progress Note for:: 08/19/16 Subjective:: Patient seen on morning rounds. She is presently resting comfortably in bed. Her daughter is at bedside. She does not respond to questions verbally when asked. Unable to do review of systems due to patient's mentation. Patient was seen by Dr Smith this morning. He spoke with daughter who now says she and her siblings have changed their minds and want Mom to have hip fixed to give her the opportunity to walk again. Patient has had PT with no visible signs of pain with movement. She presently does not appear to have pain at rest Physical Exam Vital Signs: Temp Pulse Resp BP Pulse Ox 98.0 F 69 18 111/59 L 100 08/19/16 04:36 08/19/16 07:00 08/19/16 04:36 08/19/16 04:36 08/19/16 04:36 Intake & Output 08/18/16 08/19/16 08/20/16 06:59 06:59 06:59 Intake Total 1200 615 Output Total 2800 2170 Balance -1600 -1555 Weight 87.4 kg 87.9 kg General appearance: PRESENT: no acute distress, well-developed, well-nourished Head exam: PRESENT: atraumatic, normocephalic Eye exam: PRESENT: conjunctiva pink, EOMI, PERRLA. ABSENT: scleral icterus Ear exam: PRESENT: bleeding Mouth exam: PRESENT: dry mucosa Neck exam: ABSENT: carotid bruit, JVD, lymphadenopathy, thyromegaly Respiratory exam: PRESENT: clear to auscultation montse. ABSENT: rales, rhonchi, wheezes Pulses: PRESENT: normal dorsalis pedis pul Vascular exam: PRESENT: normal capillary refill GI/Abdominal exam: PRESENT: normal bowel sounds, soft. ABSENT: distended, guarding, mass, organolmegaly, rebound, tenderness Rectal exam: PRESENT: deferred Extremities exam: PRESENT: other - left lower extremity shortened and externally rotated Musculoskeletal exam: PRESENT: deformity Neurological exam: PRESENT: alert, altered, awake, CN II-XII grossly intact Psychiatric exam: PRESENT: flat affect Skin exam: PRESENT: dry, intact, warm. ABSENT: cyanosis, rash Results Laboratory Results: 08/16/16 05:41 08/16/16 05:41 08/14/16 08/15/16 10:30 08:20 CK-MB (CK-2) 3.67 2.06 Impressions: Chest X-Ray 08/13/16 00:00 IMPRESSION: NO ACUTE RADIOGRAPHIC FINDING IN THE CHEST. Femur X-Ray 08/13/16 16:40 IMPRESSION: INTERTROCHANTERIC FEMUR FRACTURE LEFT HIP. Hip X-Ray 08/13/16 16:40 IMPRESSION: INTERTROCHANTERIC FEMUR FRACTURE LEFT HIP. Assessment & Plan - Diagnosis (1) Fracture, intertrochanteric, left femur Qualifiers: Encounter type: initial encounter Fracture type: closed Qualified Code(s): S72.142A - Displaced intertrochanteric fracture of left femur , initial encounter for closed fracture Is this a current diagnosis for this admission?: YesPlan: Patient scheduled to undergo open repair tomorrow with Dr Smith (2) Hypernatremia Is this a current diagnosis for this admission?: YesPlan: Appears to be from dehydration. 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 This has been stable - Time Time Spent with patient: 25-34 minutes Critical Time spent with patient: Less than 15 minutes Medications reviewed and adjusted accordingly: Yes Anticipated discharge: SNF
[2016-08-19 14:07] LABS: HEMATOCRIT 31.7 % (36.0-47.0); HEMOGLOBIN 10.6 g/dL (12.0-15.5); HGB HCT DIFFERENCE 0.1; MEAN CORPUSCULAR HEMOGLOBIN 30.6 pg (27.0-33.4); MEAN CORPUSCULAR HGB CONC 33.3 g/dL (32.0-36.0); MEAN CORPUSCULAR VOLUME 92 fl (80-97); RED BLOOD COUNT 3.45 10^6/uL (3.72-5.28); RED CELL DISTRIBUTION WIDTH 14.8 % (11.5-14.0)
[2016-08-19 14:16] LABS: PROTHROMBIN TIME 12.9 SEC (11.4-15.4)
[2016-08-19 14:17] LABS: PARTIAL THROMBOPLASTIN TIME 27.2 SEC (23.5-35.8)
[2016-08-19 14:22] LABS: ANION GAP 9 (5-19); BLOOD UREA NITROGEN 19 mg/dL (7-20); CALCIUM 8.3 mg/dL (8.4-10.2); CARBON DIOXIDE 28 mmol/L (22-30); CHLORIDE 105 mmol/L (98-107); CREATININE RESULT 0.83 mg/dL (0.52-1.25); GLUCOSE 116 mg/dL (75-110); POTASSIUM 3.9 mmol/L (3.6-5.0); SODIUM 141.8 mmol/L (137-145)
[2016-08-19 14:25] LABS: BASOPHILS % (MANUAL) 1 % (0-2); EOSINOPHILS % (MANUAL) 2 % (0-6); LYMPHOCYTES % (MANUAL) 21 % (13-45); TOTAL CELLS COUNTED 100
[2016-08-19 14:26] LABS: PLATELET CLUMPS PRESENT; RBC MORPHOLOGY COMMENT NORMO-CYTIC/CHROMIC
[2016-08-19] MEDS: TRAZODONE HCL 50 MG TABLET PO SCH (21:42)
[2016-08-19] MEDS: DONEPEZIL HCL 5 MG TABLET PO SCH (21:42)
[2016-08-20] MEDS ORDERED: RINGERS SOLUTION,LACTATED 1,000 ML IV PRN ×2 (05:00→12:15)
[2016-08-20] MEDS ORDERED: CEFAZOLIN 2 GM/D5W RTU 2 GM/50 ML RTUPB IV PRN (05:00)
[2016-08-20] MEDS: HEPARIN SOD (PORCINE) 5,000 UNIT/ML 1 ML SYRINGE SUBCUT SCH ×3 (05:01→23:29)
--- NOTE | 2016-08-20 08:51 | XCELERA REPORT ---
[address] [address] Transthoracic Echocardiogram Report Name: TOYA DINERO Age: 81 yrs Gender: Female : 1935 Patient Status: Inpatient Patient Location: [id number]\S\436\S\A Study Date: 08/19/2016 09:03 PM Height: 64 in Weight: 193 lb BSA: 1.9 m2 Procedure: A two-dimensional transthoracic echocardiogram with color flow and Doppler was performed. The study was technically difficult with many images being suboptimal in quality. The study was technically limited with all images being suboptimal in quality. Reason For Study: MURMUR / PRE-OPERATIVE CARDIAC RISK History: MURMUR / PRE-OPERATIVE CARDIAC RISK. Ordering Physician: KRYSTIN FARR Performed By: Tati Holder Interpretation Summary The left ventricle is normal in size. There is normal left ventricular wall thickness. LV EF is 65% Left ventricular systolic function is normal. Doppler measurements suggest impaired left ventricular relaxation, which is associated with grade I/IV or mild diastolic dysfunction The left ventricular wall motion is normal. There is no thrombus. The right ventricle is not well visualized secondary to technical limitations The left atrial size is normal. There is mild mitral annular calcification. There is no evidence of mitral valve prolapse. There is no vegetation seen on the mitral valve. There is no mitral valve stenosis. There is a trace amount of mitral regurgitation The aortic valve is mildly calcified There is no aortic valvular vegetation. There is mild aortic stenosis There is a peak gradient of 17 mm of Hg. There is no LVOT obstruction. No hemodynamically significant valvular aortic stenosis. No aortic regurgitation is present. There is no tricuspid stenosis. There is a trace amount of tricuspid regurgitation Right ventricular systolic pressure is normal. RVSP is 29 mm of Hg , with RA mean of 5. There is no pericardial effusion. MMode/2D Measurements \T\ Calculations RVDd: 3.8 cm LVIDd: 4.2 cm FS: 36.1 % Ao root diam: 2.8 cm IVSd: 1.0 cm LVIDs: 2.7 cm EDV(Teich): 80.0 ml LVPWd: 1.0 cm ESV(Teich): 27.1 ml Ao root area: 6.2 cm2 EF(Teich): 66.1 % LA dimension: 3.8 cm LVOT diam: 2.0 cm LVOT area: 3.1 cm2 Doppler Measurements \T\ Calculations MV E max gilberto: MV P1/2t max gilberto: Ao V2 max: LV V1 max P.5 cm/sec 81.4 cm/sec 205.9 cm/sec 10.3 mmHg MV A max gilberto: MV P1/2t: 63.9 msec Ao max PG: LV V1 max: 106.6 cm/sec MVA(P1/2t): 3.4 cm2 17.0 mmHg 160.1 cm/sec MV E/A: 0.75 MV dec slope: JEWELS(V,D): 2.4 cm2 373.1 cm/sec2 MV dec time: 0.20 sec PA V2 max: TR max gilberto: 104.3 cm/sec 243.0 cm/sec PA max P.4 mmHgTR max P.6 mmHg Left Ventricle The left ventricle is normal in size. There is normal left ventricular wall thickness. LV EF is 65%. Left ventricular systolic function is normal. Doppler measurements suggest impaired left ventricular relaxation, which is associated with grade I/IV or mild diastolic dysfunction. The left ventricular wall motion is normal. There is no thrombus. Right Ventricle The right ventricle is not well visualized secondary to technical limitations. Atria The right atrium is normal. The left atrial size is normal. Mitral Valve There is mild mitral annular calcification. There is no evidence of mitral valve prolapse. There is no vegetation seen on the mitral valve. There is no mitral valve stenosis. There is a trace amount of mitral regurgitation. Aortic Valve The aortic valve is mildly calcified. There is no aortic valvular vegetation. There is mild aortic stenosis. There is a peak gradient of 17 mm of Hg. There is no LVOT obstruction. No hemodynamically significant valvular aortic stenosis. No aortic regurgitation is present. Tricuspid Valve There is no tricuspid stenosis. There is a trace amount of tricuspid regurgitation. Right ventricular systolic pressure is normal. RVSP is 29 mm of Hg , with RA mean of 5. Pulmonic Valve There is no pulmonic valvular stenosis. There is no pulmonic valvular regurgitation. Great Vessels The aortic root is normal size. Effusions There is no pericardial effusion. : KRYSTIN FARR > Saritha Humphries
[2016-08-20] MEDS ORDERED: FENTANYL CITRATE INJ/PF 100 MCG/2 ML AMPUL ONE (09:46)
[2016-08-20] MEDS ORDERED: MIDAZOLAM 2 MG/2 ML INJ ONE (09:46)
[2016-08-20] MEDS ORDERED: PROPOFOL INJ 200 MG/20 ML VIAL IV ONE (09:46)
--- NOTE | 2016-08-20 11:31 | Operative Report ---
Operative Report DATE OF SURGERY: 08/20/16 PREOPERATIVE DIAGNOSIS: Left intratrochanteric femur fracture OPERATION: Open reduction internal fixation SURGEON: ABDELRAHMAN BOWEN ANESTHESIA: Spinal ESTIMATED BLOOD LOSS: 100 PROCEDURE: Implants used: Synthes gamma 3 nail 11 mm x 340 mm x 125, 105 mm proximal interlock, 47.5 mm distal interlock. With the patient supine on the fracture table the left lower extremity was manipulated under fluoroscopic guidance an attempt to effect an anatomic reduction. This is exceedingly difficult. Even with the fracture over distracted the femoral neck is flexed and internally rotated, suggesting that it was of the psoas was still attached. I attempted to manipulate this with pressure from above and below about the fracture and cannot get the femoral neck , back in line with the femur. I make a decision at this point that intraoperatively we'll have to open the fracture to effect a better reduction. Prior to the internal fixation. The left lower extremity was then prepped and draped in sterile fashion. A pin is placed percutaneously down to the greater trochanter into the femoral canal. A combined reamers used to fashion a cortical opening proximally. A ball- tipped guide pete was then placed down the femur and the length is measured to be 340 mm. Canal was then flexibly reamed to a 12 mm reamer. The 11 x 3 40 nail was then advanced over the ball-tipped guide pete to appropriate depth. Next, an incision is made over the region of the vastus ridge and blunt dissection of the soft tissues was performed. A reducing tool was then advanced over the top of the femur onto the femoral neck and used to reduce the femoral neck to the femur. This is near if not anatomically reduced. The proximal pin is then placed to maintain the reduction. The pain is central and an anterior posterior dimension as well as a cephalad caudad dimension. In reamers then used to ream the canal for the proximal interlock. 105 mm proximal interlock is then advanced over the pin and locked in place. Fluoroscopy suggest that the reduction is at least good and that the placement of the proximal screw is central in both dimensions. A distal interlock is then placed freehand using fluoroscopic guidance. Wounds irrigated, hemostasis obtained with electrocautery, and closures Vicryl followed by hugo. Sterile dressings are applied and the patient's returned to the PACU.
[2016-08-20] MEDS ORDERED: CEFAZOLIN SODIUM 2 GM in DEXTROSE 5%-WATER 100 ML IV SCH (14:00)
--- NOTE | 2016-08-20 14:10 | PDOC PROGRESS REPORT ---
Subjective Progress Note for:: 08/20/16 Subjective:: Patient is seen on rounds. She just returned from the OR after having ORIF of left hip fracture. She is awake and alert. Pleasantly confused as she is normally. Her three children and granddaughter are at her bedside. Her vitals signs are stable. Unable to do review of systems do to her mentation. Physical Exam Vital Signs: Temp Pulse Resp BP Pulse Ox 98.4 F 64 20 137/61 H 100 08/20/16 12:34 08/20/16 12:34 08/20/16 12:34 08/20/16 12:34 08/20/16 12:34 Intake & Output 08/19/16 08/20/16 08/21/16 06:59 06:59 06:59 Intake Total 615 1443 1600 Output Total 2170 1800 830 Balance -1555 -357 770 Weight 87.9 kg 86.4 kg General appearance: PRESENT: no acute distress, well-developed, well-nourished Head exam: PRESENT: atraumatic, normocephalic Eye exam: PRESENT: conjunctiva pink, EOMI, PERRLA. ABSENT: scleral icterus Ear exam: PRESENT: normal external ear exam Mouth exam: PRESENT: moist, tongue midline Neck exam: ABSENT: carotid bruit, JVD, lymphadenopathy, thyromegaly Cardiovascular exam: PRESENT: RRR. ABSENT: diastolic murmur, rubs, systolic murmur Pulses: PRESENT: normal dorsalis pedis pul Vascular exam: PRESENT: normal capillary refill GI/Abdominal exam: PRESENT: normal bowel sounds, soft. ABSENT: distended, guarding, mass, organolmegaly, rebound, tenderness Rectal exam: PRESENT: deferred Extremities exam: PRESENT: full ROM. ABSENT: calf tenderness, clubbing, pedal edema Neurological exam: PRESENT: alert, altered, awake. ABSENT: motor sensory deficit Psychiatric exam: PRESENT: flat affect, normal mood Skin exam: PRESENT: dry, intact, warm. ABSENT: cyanosis, rash Results Laboratory Results: 08/19/16 13:34 08/19/16 13:34 08/19/16 08/19/16 13:34 13:34 WBC 9.0 RBC 3.45 L Hgb 10.6 L Hct 31.7 L MCV 92 MCH 30.6 MCHC 33.3 RDW 14.8 H Plt Count 230 Seg Neutrophils % Not Reportable Lymphocytes % Not Reportable Monocytes % Not Reportable Eosinophils % Not Reportable Basophils % Not Reportable Absolute Neutrophils Not Reportable Absolute Lymphocytes Not Reportable Absolute Monocytes Not Reportable Absolute Eosinophils Not Reportable Absolute Basophils Not Reportable Sodium 141.8 Potassium 3.9 Chloride 105 Carbon Dioxide 28 Anion Gap 9 BUN 19 Creatinine 0.83 Est GFR ( Amer) > 60 Est GFR (Non-Af Amer) > 60 Glucose 116 H Calcium 8.3 L 08/14/16 08/15/16 10:30 08:20 CK-MB (CK-2) 3.67 2.06 Impressions: Chest X-Ray 08/13/16 00:00 IMPRESSION: NO ACUTE RADIOGRAPHIC FINDING IN THE CHEST. Femur X-Ray 08/13/16 16:40 IMPRESSION: INTERTROCHANTERIC FEMUR FRACTURE LEFT HIP. Fluoroscopy 08/20/16 00:00 IMPRESSION: IMAGE(S) OBTAINED DURING PROCEDURE. Hip X-Ray 08/20/16 00:00 IMPRESSION: IMAGE(S) OBTAINED DURING PROCEDURE. Assessment & Plan - Diagnosis (1) Fracture, intertrochanteric, left femur Qualifiers: Encounter type: initial encounter Fracture type: closed Qualified Code(s): S72.142A - Displaced intertrochanteric fracture of left femur , initial encounter for closed fracture Is this a current diagnosis for this admission?: YesPlan: Patient underwent ORIF of left hip today by Dr Smith (2) Hypernatremia Is this a current diagnosis for this admission?: YesPlan: Appears to be from dehydration. She was rehydrated with 1/2 NS IV solution and resolved (3) Dementia Qualifiers: Dementia type: unspecified type Dementia behavioral disturbance: without behavioral disturbance Qualified Code(s): F03.90 - Unspecified dementia without behavioral disturbance Is this a current diagnosis for this admission?: YesPlan: Patient will terminal clerk vascular dementia at baseline per daughter who is at the bedside (4) Acute renal failure Is this a current diagnosis for this admission?: YesPlan: Appears to be prerenal due to dehydration, Improved with IV hydration (5) Acute blood loss anemia Is this a current diagnosis for this admission?: YesPlan: Most likely secondary to blood loss from hip fracture will continue to monitor. This has been stable - Time Time Spent with patient: 15-24 minutes Critical Time spent with patient: 15-24 minutes Medications reviewed and adjusted accordingly: Yes Anticipated discharge: Acute Rehab - Inpatient Certification Based on my medical assessment, after consideration of the patient's comorbidities, presenting symptoms, or acuity I expect that the services needed warrant INPATIENT care.: Yes I certify that my determination is in accordance with my understanding of Medicare's requirements for reasonable and necessary INPATIENT services [42 CFR 412.3e].: Yes Medical Necessity: Need For IV Fluids, Need for Surgery
[2016-08-20] MEDS: CEFAZOLIN 2 GM/D5W RTU 2 GM/50 ML RTUPB IV SCH (18:03)
[2016-08-20] MEDS: CYANOCOBALAMIN (VITAMIN B-12) 1,000 MCG TABLET PO SCH (18:07)
[2016-08-20] MEDS: DOCUSATE SODIUM 100 MG CAPSULE PO SCH ×2 (18:07→23:30)
[2016-08-20] MEDS: MEMANTINE HCL 10 MG TABLET PO SCH ×2 (18:07→23:28)
[2016-08-20] MEDS: NA PHOS,M-B/NA PHOS,DI-BA (ADULT) 133 ML ENEMA PR PRN (18:07)
[2016-08-20] MEDS: VALSARTAN 40 MG TABLET PO SCH (18:07)
[2016-08-20] MEDS: DONEPEZIL HCL 5 MG TABLET PO SCH (23:28)
[2016-08-20] MEDS: TRAZODONE HCL 50 MG TABLET PO SCH (23:29)
[2016-08-21] MEDS: CEFAZOLIN 2 GM/D5W RTU 2 GM/50 ML RTUPB IV SCH (02:47)
--- NOTE | 2016-08-21 06:45 | PDOC PROGRESS REPORT ---
Subjective Progress Note for:: 08/21/16 Subjective:: Patient resting comfortably. Physical Exam Vital Signs: Temp Pulse Resp BP Pulse Ox 36.6 C 86 20 139/91 H 97 08/21/16 04:08 08/21/16 04:08 08/21/16 04:08 08/21/16 04:08 08/21/16 04:08 Intake & Output 08/19/16 08/20/16 08/21/16 06:59 06:59 06:59 Intake Total 615 1443 2305 Output Total 2170 1800 1280 Balance -1555 -357 1025 Weight 87.9 kg 86.4 kg General appearance: PRESENT: no acute distress Head exam: PRESENT: normocephalic Respiratory exam: PRESENT: unlabored Cardiovascular exam: PRESENT: RRR Pulses: PRESENT: +1 pedal pulses bilateral Vascular exam: PRESENT: normal capillary refill GI/Abdominal exam: PRESENT: soft Extremities exam: PRESENT: other - Left lower extremity dressings have been reinforced. The current clean dry and intact. Leg lengths are equal. Distal neurovascular examinations intact. Results Laboratory Results: 08/19/16 13:34 08/19/16 13:34 08/14/16 08/15/16 10:30 08:20 CK-MB (CK-2) 3.67 2.06 Impressions: Chest X-Ray 08/13/16 00:00 IMPRESSION: NO ACUTE RADIOGRAPHIC FINDING IN THE CHEST. Femur X-Ray 08/13/16 16:40 IMPRESSION: INTERTROCHANTERIC FEMUR FRACTURE LEFT HIP. Fluoroscopy 08/20/16 00:00 IMPRESSION: IMAGE(S) OBTAINED DURING PROCEDURE. Hip X-Ray 08/20/16 00:00 IMPRESSION: IMAGE(S) OBTAINED DURING PROCEDURE. Status: Imported from PACS Assessment & Plan - Diagnosis (1) Fracture, intertrochanteric, left femur Qualifiers: Encounter type: subsequent encounter Fracture type: closed Is this a current diagnosis for this admission?: YesPlan: 81-year-old female status post intramedullary fixation of a left proximal femoral fracture. Uneventful postoperative course. Physical therapy for mobilization, weightbearing as tolerated basis. - Time Time Spent with patient: 15-24 minutes Anticipated discharge: SNF Within: within 24 hours
[2016-08-21] MEDS: HEPARIN SOD (PORCINE) 5,000 UNIT/ML 1 ML SYRINGE SUBCUT SCH ×3 (06:47→22:09)
[2016-08-21] MEDS: VALSARTAN 40 MG TABLET PO SCH (10:14)
[2016-08-21] MEDS: MEMANTINE HCL 10 MG TABLET PO SCH ×2 (10:14→22:09)
[2016-08-21] MEDS: CYANOCOBALAMIN (VITAMIN B-12) 1,000 MCG TABLET PO SCH (10:15)
[2016-08-21] MEDS: DOCUSATE SODIUM 100 MG CAPSULE PO SCH ×2 (10:15→22:08)
--- NOTE | 2016-08-21 12:31 | PDOC PROGRESS REPORT ---
Subjective Progress Note for:: 08/21/16 Subjective:: Patient is seen on rounds. She just returned from the OR after having ORIF of left hip fracture. She is awake and alert. Pleasantly confused as she is normally. Her three children and granddaughter are at her bedside. Her vitals signs are stable. Unable to do review of systems do to her mentation. Physical Exam Vital Signs: Temp Pulse Resp BP Pulse Ox 97.9 F 86 20 139/91 H 97 08/21/16 04:08 08/21/16 04:08 08/21/16 04:08 08/21/16 04:08 08/21/16 04:08 Intake & Output 08/20/16 08/21/16 08/22/16 06:59 06:59 06:59 Intake Total 1443 2305 210 Output Total 1800 1280 Balance -357 1025 210 Weight 86.4 kg 90 kg General appearance: PRESENT: no acute distress, obese, well-developed, well- nourished Head exam: PRESENT: atraumatic, normocephalic Eye exam: PRESENT: conjunctiva pink, EOMI, PERRLA. ABSENT: scleral icterus Ear exam: PRESENT: normal external ear exam Mouth exam: PRESENT: moist, tongue midline Neck exam: ABSENT: carotid bruit, JVD, lymphadenopathy, thyromegaly Respiratory exam: PRESENT: clear to auscultation montse. ABSENT: rales, rhonchi, wheezes Cardiovascular exam: PRESENT: RRR. ABSENT: diastolic murmur, rubs, systolic murmur Pulses: PRESENT: normal dorsalis pedis pul Vascular exam: PRESENT: normal capillary refill GI/Abdominal exam: PRESENT: normal bowel sounds, soft. ABSENT: distended, guarding, mass, organolmegaly, rebound, tenderness Rectal exam: PRESENT: deferred Extremities exam: PRESENT: full ROM. ABSENT: calf tenderness, clubbing, pedal edema Neurological exam: PRESENT: alert, awake, oriented to person, oriented to place , oriented to time, oriented to situation, CN II-XII grossly intact. ABSENT: motor sensory deficit Psychiatric exam: PRESENT: appropriate affect, normal mood. ABSENT: homicidal ideation, suicidal ideation Skin exam: PRESENT: dry, intact, warm. ABSENT: cyanosis, rash Results Laboratory Results: 08/19/16 13:34 08/19/16 13:34 08/14/16 08/15/16 10:30 08:20 CK-MB (CK-2) 3.67 2.06 Impressions: Chest X-Ray 08/13/16 00:00 IMPRESSION: NO ACUTE RADIOGRAPHIC FINDING IN THE CHEST. Femur X-Ray 08/13/16 16:40 IMPRESSION: INTERTROCHANTERIC FEMUR FRACTURE LEFT HIP. Fluoroscopy 08/20/16 00:00 IMPRESSION: IMAGE(S) OBTAINED DURING PROCEDURE. Hip X-Ray 08/20/16 00:00 IMPRESSION: IMAGE(S) OBTAINED DURING PROCEDURE. Assessment & Plan - Diagnosis (1) Fracture, intertrochanteric, left femur Qualifiers: Encounter type: subsequent encounter Fracture type: closed Is this a current diagnosis for this admission?: YesPlan: Patient underwent ORIF of left hip by Dr Smith. POD #1 (2) Hypernatremia Is this a current diagnosis for this admission?: YesPlan: Appears to be from dehydration. She was rehydrated with 1/2 NS IV solution and resolved (3) Dementia Qualifiers: Dementia type: unspecified type Dementia behavioral disturbance: without behavioral disturbance Qualified Code(s): F03.90 - Unspecified dementia without behavioral disturbance Is this a current diagnosis for this admission?: YesPlan: Patient will mcfp vascular dementia at baseline per daughter who is at the bedside (4) Acute renal failure Is this a current diagnosis for this admission?: YesPlan: Appears to be prerenal due to dehydration, Improved with IV hydration (5) Acute blood loss anemia Is this a current diagnosis for this admission?: YesPlan: Most likely secondary to blood loss from hip fracture will continue to monitor. This has been stable - Time Time Spent with patient: 25-34 minutes Critical Time spent with patient: 15-24 minutes Medications reviewed and adjusted accordingly: Yes Anticipated discharge: SNF Within: when bed available
[2016-08-21] MEDS: NA PHOS,M-B/NA PHOS,DI-BA (ADULT) 133 ML ENEMA PR PRN (12:38)
[2016-08-21 14:29] LABS: ABSOLUTE BASOPHILS # (AUTO) 0.1 10^3/uL (0.0-0.2); ABSOLUTE EOSINOPHILS # (AUTO) 0.1 10^3/uL (0.0-0.6); ABSOLUTE LYMPHOCYTES (AUTO) 1.1 10^3/uL (0.5-4.7); ABSOLUTE MONOCYTES (AUTO) 0.8 10^3/uL (0.1-1.4); ABSOLUTE NEUT (AUTO) 8.6 10^3/uL (1.7-8.2); BASOPHILS % (AUTO) 0.7 % (0-2); EOSINOPHILS % (AUTO) 0.8 % (0-6); HEMATOCRIT 29.1 % (36.0-47.0); HEMOGLOBIN 9.8 g/dL (12.0-15.5); HGB HCT DIFFERENCE 0.3; LYMPHOCYTES % (AUTO) 10.6 % (13-45); MEAN CORPUSCULAR HEMOGLOBIN 30.7 pg (27.0-33.4); MEAN CORPUSCULAR HGB CONC 33.7 g/dL (32.0-36.0); MEAN CORPUSCULAR VOLUME 91 fl (80-97); MONOCYTES % (AUTO) 7.2 % (3-13); RED BLOOD COUNT 3.19 10^6/uL (3.72-5.28); RED CELL DISTRIBUTION WIDTH 15.3 % (11.5-14.0); SEGMENTED NEUTROPHILS % (AUTO) 80.7 % (42-78); WHITE BLOOD COUNT 10.7 10^3/uL (4.0-10.5)
[2016-08-21] MEDS: DONEPEZIL HCL 5 MG TABLET PO SCH (22:08)
[2016-08-21] MEDS: TRAZODONE HCL 50 MG TABLET PO SCH (22:09)
[2016-08-22] MEDS: HEPARIN SOD (PORCINE) 5,000 UNIT/ML 1 ML SYRINGE SUBCUT SCH ×3 (06:07→22:13)
[2016-08-22 06:50] LABS: ANION GAP 6 (5-19); BLOOD UREA NITROGEN 21 mg/dL (7-20); CALCIUM 7.3 mg/dL (8.4-10.2); CARBON DIOXIDE 26 mmol/L (22-30); CHLORIDE 105 mmol/L (98-107); CREATININE RESULT 0.79 mg/dL (0.52-1.25); GLUCOSE 109 mg/dL (75-110); SODIUM 136.9 mmol/L (137-145)
--- NOTE | 2016-08-22 07:03 | PDOC PROGRESS REPORT ---
Subjective Progress Note for:: 08/22/16 Subjective:: Patient not verbally responsive Physical Exam Vital Signs: Temp Pulse Resp BP Pulse Ox 36.4 C 93 18 126/47 H 94 08/22/16 05:50 08/22/16 05:50 08/22/16 05:50 08/22/16 05:50 08/22/16 05:50 Intake & Output 08/21/16 08/22/16 08/23/16 06:59 06:59 06:59 Intake Total 2305 580 Output Total 1280 Balance 1025 580 Weight 90 kg 92.3 kg General appearance: PRESENT: no acute distress Head exam: PRESENT: normocephalic Respiratory exam: PRESENT: unlabored Cardiovascular exam: PRESENT: RRR Pulses: PRESENT: +1 pedal pulses bilateral Vascular exam: PRESENT: normal capillary refill GI/Abdominal exam: PRESENT: soft Musculoskeletal exam: PRESENT: other - Left lower extremity dressings changed. Proximal 2 incisions are well approximated without erythema, but there is serous drainage. Results Laboratory Results: 08/21/16 13:33 08/22/16 06:13 08/21/16 08/22/16 13:33 06:13 WBC 10.7 H RBC 3.19 L Hgb 9.8 L Hct 29.1 L MCV 91 MCH 30.7 MCHC 33.7 RDW 15.3 H Plt Count 189 Seg Neutrophils % 80.7 H Lymphocytes % 10.6 L Monocytes % 7.2 Eosinophils % 0.8 Basophils % 0.7 Absolute Neutrophils 8.6 H Absolute Lymphocytes 1.1 Absolute Monocytes 0.8 Absolute Eosinophils 0.1 Absolute Basophils 0.1 Sodium 136.9 L Potassium 4.0 Chloride 105 Carbon Dioxide 26 Anion Gap 6 BUN 21 H Creatinine 0.79 Est GFR ( Amer) > 60 Est GFR (Non-Af Amer) > 60 Glucose 109 Calcium 7.3 L 08/14/16 08/15/16 10:30 08:20 CK-MB (CK-2) 3.67 2.06 Impressions: Chest X-Ray 08/13/16 00:00 IMPRESSION: NO ACUTE RADIOGRAPHIC FINDING IN THE CHEST. Femur X-Ray 08/13/16 16:40 IMPRESSION: INTERTROCHANTERIC FEMUR FRACTURE LEFT HIP. Fluoroscopy 08/20/16 00:00 IMPRESSION: IMAGE(S) OBTAINED DURING PROCEDURE. Hip X-Ray 08/20/16 00:00 IMPRESSION: IMAGE(S) OBTAINED DURING PROCEDURE. Assessment & Plan - Diagnosis (1) Fracture, intertrochanteric, left femur Qualifiers: Encounter type: subsequent encounter Fracture type: closed Is this a current diagnosis for this admission?: YesPlan: Postop day 2 status post left intratrochanteric femur fracture fixation. Serous drainage. Probably reflects the fact that this fracture was a week old. Prior to fixation and that extends more extensive approach was needed for intraoperative reduction of the fracture. Patient can be mobilized on a weightbearing as tolerated basis. - Time Time Spent with patient: 15-24 minutes Anticipated discharge: SNF Within: within 48 hours
[2016-08-22] MEDS: DOCUSATE SODIUM 100 MG CAPSULE PO SCH ×2 (10:08→22:13)
[2016-08-22] MEDS: MEMANTINE HCL 10 MG TABLET PO SCH ×2 (10:09→22:13)
[2016-08-22] MEDS: VALSARTAN 40 MG TABLET PO SCH (10:09)
[2016-08-22] MEDS: CYANOCOBALAMIN (VITAMIN B-12) 1,000 MCG TABLET PO SCH (10:09)
[2016-08-22] MEDS: NA PHOS,M-B/NA PHOS,DI-BA (ADULT) 133 ML ENEMA PR PRN (10:10)
[2016-08-22 11:49] LABS: ABSOLUTE BASOPHILS # (AUTO) 0.1 10^3/uL (0.0-0.2); ABSOLUTE EOSINOPHILS # (AUTO) 0.1 10^3/uL (0.0-0.6); ABSOLUTE LYMPHOCYTES (AUTO) 1.4 10^3/uL (0.5-4.7); ABSOLUTE MONOCYTES (AUTO) 0.9 10^3/uL (0.1-1.4); ABSOLUTE NEUT (AUTO) 7.9 10^3/uL (1.7-8.2); BASOPHILS % (AUTO) 1.2 % (0-2); EOSINOPHILS % (AUTO) 1.1 % (0-6); HEMATOCRIT 25.5 % (36.0-47.0); HEMOGLOBIN 8.6 g/dL (12.0-15.5); HGB HCT DIFFERENCE 0.3; LYMPHOCYTES % (AUTO) 13.7 % (13-45); MEAN CORPUSCULAR HEMOGLOBIN 30.7 pg (27.0-33.4); MEAN CORPUSCULAR HGB CONC 33.7 g/dL (32.0-36.0); MEAN CORPUSCULAR VOLUME 91 fl (80-97); RED CELL DISTRIBUTION WIDTH 15.4 % (11.5-14.0); WHITE BLOOD COUNT 10.5 10^3/uL (4.0-10.5)
--- NOTE | 2016-08-22 11:59 | PDOC PROGRESS REPORT ---
Subjective Progress Note for:: 08/22/16 Subjective:: Patient is seen on rounds. She just returned from the OR after having ORIF of left hip fracture. She is awake and alert. Pleasantly confused as she is normally. Her three children and granddaughter are at her bedside. Her vitals signs are stable. Unable to do review of systems do to her mentation. Physical Exam Vital Signs: Temp Pulse Resp BP Pulse Ox 97.6 F 91 18 126/47 H 94 08/22/16 05:50 08/22/16 07:00 08/22/16 05:50 08/22/16 05:50 08/22/16 05:50 Intake & Output 08/21/16 08/22/16 08/23/16 06:59 06:59 06:59 Intake Total 2305 580 Output Total 1280 Balance 1025 580 Weight 90 kg 92.3 kg General appearance: PRESENT: no acute distress, obese, well-developed, well- nourished Head exam: PRESENT: atraumatic, normocephalic Eye exam: PRESENT: conjunctiva pink, EOMI, PERRLA. ABSENT: scleral icterus Ear exam: PRESENT: normal external ear exam Mouth exam: PRESENT: dry mucosa Neck exam: ABSENT: carotid bruit, JVD, lymphadenopathy, thyromegaly Respiratory exam: PRESENT: clear to auscultation montse. ABSENT: rales, rhonchi, wheezes Cardiovascular exam: PRESENT: RRR. ABSENT: diastolic murmur, rubs, systolic murmur Pulses: PRESENT: normal dorsalis pedis pul GI/Abdominal exam: PRESENT: normal bowel sounds, soft. ABSENT: distended, guarding, mass, organolmegaly, rebound, tenderness Rectal exam: PRESENT: deferred Extremities exam: PRESENT: full ROM. ABSENT: calf tenderness, clubbing, pedal edema Musculoskeletal exam: PRESENT: normal inspection Neurological exam: PRESENT: alert, altered, CN II-XII grossly intact Psychiatric exam: PRESENT: flat affect Skin exam: PRESENT: dry, intact, warm. ABSENT: cyanosis, rash Results Laboratory Results: 08/22/16 06:13 08/22/16 06:13 08/21/16 08/22/16 08/22/16 13:33 06:13 06:13 WBC 10.7 H 10.5 RBC 3.19 L 2.80 L Hgb 9.8 L 8.6 L Hct 29.1 L 25.5 L MCV 91 91 MCH 30.7 30.7 MCHC 33.7 33.7 RDW 15.3 H 15.4 H Plt Count 189 198 Seg Neutrophils % 80.7 H 75.0 Lymphocytes % 10.6 L 13.7 Monocytes % 7.2 9.0 Eosinophils % 0.8 1.1 Basophils % 0.7 1.2 Absolute Neutrophils 8.6 H 7.9 Absolute Lymphocytes 1.1 1.4 Absolute Monocytes 0.8 0.9 Absolute Eosinophils 0.1 0.1 Absolute Basophils 0.1 0.1 Sodium 136.9 L Potassium 4.0 Chloride 105 Carbon Dioxide 26 Anion Gap 6 BUN 21 H Creatinine 0.79 Est GFR ( Amer) > 60 Est GFR (Non-Af Amer) > 60 Glucose 109 Calcium 7.3 L 08/14/16 08/15/16 10:30 08:20 CK-MB (CK-2) 3.67 2.06 Impressions: Chest X-Ray 08/13/16 00:00 IMPRESSION: NO ACUTE RADIOGRAPHIC FINDING IN THE CHEST. Femur X-Ray 08/13/16 16:40 IMPRESSION: INTERTROCHANTERIC FEMUR FRACTURE LEFT HIP. Fluoroscopy 08/20/16 00:00 IMPRESSION: IMAGE(S) OBTAINED DURING PROCEDURE. Hip X-Ray 08/20/16 00:00 IMPRESSION: IMAGE(S) OBTAINED DURING PROCEDURE. Assessment & Plan - Diagnosis (1) Fracture, intertrochanteric, left femur Qualifiers: Encounter type: subsequent encounter Fracture type: closed Is this a current diagnosis for this admission?: YesPlan: Patient underwent ORIF of left hip by Dr Smith. POD #1 (2) Hypernatremia Is this a current diagnosis for this admission?: YesPlan: Appears to be from dehydration. She was rehydrated with 1/2 NS IV solution and resolved (3) Dementia Qualifiers: Dementia type: unspecified type Dementia behavioral disturbance: without behavioral disturbance Qualified Code(s): F03.90 - Unspecified dementia without behavioral disturbance Is this a current diagnosis for this admission?: YesPlan: Patient will prison vascular dementia at baseline per daughter who is at the bedside (4) Acute renal failure Is this a current diagnosis for this admission?: YesPlan: Appears to be prerenal due to dehydration, Improved with IV hydration (5) Acute blood loss anemia Is this a current diagnosis for this admission?: YesPlan: Most likely secondary to blood loss from hip fracture will continue to monitor. This has been stable - Time Time Spent with patient: 25-34 minutes Critical Time spent with patient: 15-24 minutes Medications reviewed and adjusted accordingly: Yes Anticipated discharge: SNF Within: when bed available
[2016-08-22] MEDS: DONEPEZIL HCL 5 MG TABLET PO SCH (22:13)
[2016-08-22] MEDS: TRAZODONE HCL 50 MG TABLET PO SCH (22:13)
[2016-08-23] MEDS: HEPARIN SOD (PORCINE) 5,000 UNIT/ML 1 ML SYRINGE SUBCUT SCH ×3 (05:31→22:49)
[2016-08-23 06:06] LABS: ABSOLUTE BASOPHILS # (AUTO) 0.1 10^3/uL (0.0-0.2); ABSOLUTE EOSINOPHILS # (AUTO) 0.2 10^3/uL (0.0-0.6); ABSOLUTE MONOCYTES (AUTO) 0.8 10^3/uL (0.1-1.4); ABSOLUTE NEUT (AUTO) 6.2 10^3/uL (1.7-8.2); EOSINOPHILS % (AUTO) 2.3 % (0-6); HEMATOCRIT 26.5 % (36.0-47.0); HEMOGLOBIN 8.9 g/dL (12.0-15.5); HGB HCT DIFFERENCE 0.2; LYMPHOCYTES % (AUTO) 12.3 % (13-45); MEAN CORPUSCULAR HEMOGLOBIN 30.4 pg (27.0-33.4); MEAN CORPUSCULAR HGB CONC 33.4 g/dL (32.0-36.0); MEAN CORPUSCULAR VOLUME 91 fl (80-97); MONOCYTES % (AUTO) 9.7 % (3-13); RED BLOOD COUNT 2.92 10^6/uL (3.72-5.28); RED CELL DISTRIBUTION WIDTH 15.5 % (11.5-14.0); SEGMENTED NEUTROPHILS % (AUTO) 74.7 % (42-78); WHITE BLOOD COUNT 8.3 10^3/uL (4.0-10.5)
[2016-08-23] MEDS: MEMANTINE HCL 10 MG TABLET PO SCH ×2 (10:37→22:48)
[2016-08-23] MEDS: DOCUSATE SODIUM 100 MG CAPSULE PO SCH ×2 (10:37→22:48)
[2016-08-23] MEDS: CYANOCOBALAMIN (VITAMIN B-12) 1,000 MCG TABLET PO SCH (10:37)
[2016-08-23] MEDS: VALSARTAN 40 MG TABLET PO SCH (10:37)
--- NOTE | 2016-08-23 11:29 | PDOC PROGRESS REPORT ---
Subjective Progress Note for:: 08/23/16 Subjective:: Patient is seen on rounds. She just returned from the OR after having ORIF of left hip fracture. She is awake and alert. Pleasantly confused as she is normally. Her three children and granddaughter are at her bedside. Her vitals signs are stable. Unable to do review of systems do to her mentation. Physical Exam Vital Signs: Temp Pulse Resp BP Pulse Ox 98.8 F 84 18 132/58 H 99 08/23/16 07:30 08/23/16 07:30 08/23/16 07:30 08/23/16 07:30 08/23/16 07:30 Intake & Output 08/22/16 08/23/16 08/24/16 06:59 06:59 06:59 Intake Total 580 Balance 580 Weight 92.3 kg 93.2 kg General appearance: PRESENT: no acute distress, obese, well-developed, well- nourished Head exam: PRESENT: atraumatic Eye exam: PRESENT: conjunctiva pink, EOMI, PERRLA. ABSENT: scleral icterus Ear exam: PRESENT: normal external ear exam Mouth exam: PRESENT: moist, tongue midline Teeth exam: PRESENT: edentulous Neck exam: ABSENT: carotid bruit, JVD, lymphadenopathy, thyromegaly Respiratory exam: PRESENT: clear to auscultation montse. ABSENT: rales, rhonchi, wheezes Cardiovascular exam: PRESENT: RRR. ABSENT: diastolic murmur, rubs, systolic murmur Vascular exam: PRESENT: normal capillary refill GI/Abdominal exam: PRESENT: normal bowel sounds, soft. ABSENT: distended, guarding, mass, organolmegaly, rebound, tenderness Rectal exam: PRESENT: deferred Extremities exam: PRESENT: full ROM. ABSENT: calf tenderness, clubbing, pedal edema Neurological exam: PRESENT: alert, altered, awake, CN II-XII grossly intact Psychiatric exam: PRESENT: flat affect, normal mood. ABSENT: homicidal ideation , suicidal ideation Skin exam: PRESENT: dry, intact, warm. ABSENT: cyanosis, rash Results Laboratory Results: 08/23/16 05:47 08/22/16 06:13 08/22/16 08/23/16 06:13 05:47 WBC 10.5 8.3 RBC 2.80 L 2.92 L Hgb 8.6 L 8.9 L Hct 25.5 L 26.5 L MCV 91 91 MCH 30.7 30.4 MCHC 33.7 33.4 RDW 15.4 H 15.5 H Plt Count 198 200 Seg Neutrophils % 75.0 74.7 Lymphocytes % 13.7 12.3 L Monocytes % 9.0 9.7 Eosinophils % 1.1 2.3 Basophils % 1.2 1.0 Absolute Neutrophils 7.9 6.2 Absolute Lymphocytes 1.4 1.0 Absolute Monocytes 0.9 0.8 Absolute Eosinophils 0.1 0.2 Absolute Basophils 0.1 0.1 08/14/16 08/15/16 10:30 08:20 CK-MB (CK-2) 3.67 2.06 Impressions: Chest X-Ray 08/13/16 00:00 IMPRESSION: NO ACUTE RADIOGRAPHIC FINDING IN THE CHEST. Femur X-Ray 08/13/16 16:40 IMPRESSION: INTERTROCHANTERIC FEMUR FRACTURE LEFT HIP. Fluoroscopy 08/20/16 00:00 IMPRESSION: IMAGE(S) OBTAINED DURING PROCEDURE. Hip X-Ray 08/20/16 00:00 IMPRESSION: IMAGE(S) OBTAINED DURING PROCEDURE. Assessment & Plan - Diagnosis (1) Fracture, intertrochanteric, left femur Qualifiers: Encounter type: subsequent encounter Fracture type: closed Is this a current diagnosis for this admission?: YesPlan: Patient underwent ORIF of left hip by Dr Smith. POD # 3. Will be ready for discharge once SNF bed is available (2) Hypernatremia Is this a current diagnosis for this admission?: YesPlan: Appears to be from dehydration. She was rehydrated with 1/2 NS IV solution and resolved (3) Dementia Qualifiers: Dementia type: unspecified type Dementia behavioral disturbance: without behavioral disturbance Qualified Code(s): F03.90 - Unspecified dementia without behavioral disturbance Is this a current diagnosis for this admission?: YesPlan: Patient will [facility] vascular dementia at baseline per daughter who is at the bedside (4) Acute renal failure Is this a current diagnosis for this admission?: YesPlan: Appears to be prerenal due to dehydration, Improved with IV hydration (5) Acute blood loss anemia Is this a current diagnosis for this admission?: YesPlan: Most likely secondary to blood loss from hip fracture will continue to monitor. This has been stable - Time Time Spent with patient: 25-34 minutes Critical Time spent with patient: 15-24 minutes Medications reviewed and adjusted accordingly: Yes Anticipated discharge: SNF Within: when bed available
[2016-08-23] MEDS ORDERED: NA PHOS,M-B/NA PHOS,DI-BA (ADULT) 133 ML ENEMA PR PRN (14:39)
[2016-08-23] MEDS: DONEPEZIL HCL 5 MG TABLET PO SCH (22:48)
[2016-08-23] MEDS: TRAZODONE HCL 50 MG TABLET PO SCH (22:48)
[2016-08-24] MEDS: HEPARIN SOD (PORCINE) 5,000 UNIT/ML 1 ML SYRINGE SUBCUT SCH ×3 (06:02→22:06)
--- NOTE | 2016-08-24 06:29 | PDOC PROGRESS REPORT ---
Subjective Progress Note for:: 08/24/16 Subjective:: Patient remains nonverbal Physical Exam Vital Signs: Temp Pulse Resp BP Pulse Ox 37.1 C 81 18 147/64 H 100 08/24/16 03:50 08/24/16 03:50 08/24/16 03:50 08/24/16 03:50 08/24/16 03:50 Intake & Output 08/22/16 08/23/16 08/24/16 06:59 06:59 06:59 Intake Total 580 500 Balance 580 500 Weight 92.3 kg 93.2 kg General appearance: PRESENT: no acute distress Head exam: PRESENT: normocephalic Respiratory exam: PRESENT: unlabored Cardiovascular exam: PRESENT: RRR Pulses: PRESENT: +1 pedal pulses bilateral Vascular exam: PRESENT: normal capillary refill GI/Abdominal exam: PRESENT: soft Extremities exam: PRESENT: other - Left lower extremity dressings with continued but decreasing serous drainage Results Laboratory Results: 08/23/16 05:47 08/22/16 06:13 08/14/16 08/15/16 10:30 08:20 CK-MB (CK-2) 3.67 2.06 Impressions: Chest X-Ray 08/13/16 00:00 IMPRESSION: NO ACUTE RADIOGRAPHIC FINDING IN THE CHEST. Femur X-Ray 08/13/16 16:40 IMPRESSION: INTERTROCHANTERIC FEMUR FRACTURE LEFT HIP. Fluoroscopy 08/20/16 00:00 IMPRESSION: IMAGE(S) OBTAINED DURING PROCEDURE. Hip X-Ray 08/20/16 00:00 IMPRESSION: IMAGE(S) OBTAINED DURING PROCEDURE. Status: Imported from PACS Assessment & Plan - Diagnosis (1) Fracture, intertrochanteric, left femur Qualifiers: Encounter type: subsequent encounter Fracture type: closed Is this a current diagnosis for this admission?: YesPlan: Patient with relatively limited progress with physical therapy. Awaiting halfway facility transfer when bed is available. - Time Time Spent with patient: 15-24 minutes Anticipated discharge: SNF Within: when bed available
[2016-08-24] MEDS: CYANOCOBALAMIN (VITAMIN B-12) 1,000 MCG TABLET PO SCH (11:07)
[2016-08-24] MEDS: DOCUSATE SODIUM 100 MG CAPSULE PO SCH ×2 (11:08→22:08)
[2016-08-24] MEDS: VALSARTAN 40 MG TABLET PO SCH (11:08)
[2016-08-24] MEDS: MEMANTINE HCL 10 MG TABLET PO SCH ×2 (11:09→22:08)
[2016-08-24] MEDS: ACETAMINOPHEN 325 MG TABLET PO PRN ×2 (11:12→16:38)
--- NOTE | 2016-08-24 11:58 | PDOC PROGRESS REPORT ---
Subjective Progress Note for:: 08/24/16 Subjective:: Patient is seen on rounds. She just returned from the OR after having ORIF of left hip fracture. She is awake and alert. Pleasantly confused as she is normally. Her three children and granddaughter are at her bedside. Her vitals signs are stable. Unable to do review of systems do to her mentation. Physical Exam Vital Signs: Temp Pulse Resp BP Pulse Ox 98.2 F 73 20 129/76 H 99 08/24/16 07:26 08/24/16 07:26 08/24/16 07:26 08/24/16 07:26 08/24/16 07:26 Intake & Output 08/23/16 08/24/16 08/25/16 06:59 06:59 06:59 Intake Total 500 Balance 500 Weight 93.2 kg 93.6 kg General appearance: PRESENT: no acute distress, obese, well-developed, well- nourished Head exam: PRESENT: atraumatic, normocephalic Eye exam: PRESENT: conjunctiva pink, EOMI, PERRLA. ABSENT: scleral icterus Ear exam: PRESENT: normal external ear exam Mouth exam: PRESENT: moist, tongue midline Teeth exam: PRESENT: edentulous Neck exam: ABSENT: carotid bruit, JVD, lymphadenopathy, thyromegaly Respiratory exam: PRESENT: clear to auscultation montse. ABSENT: rales, rhonchi, wheezes Cardiovascular exam: PRESENT: RRR. ABSENT: diastolic murmur, rubs, systolic murmur Pulses: PRESENT: normal dorsalis pedis pul Vascular exam: PRESENT: normal capillary refill GI/Abdominal exam: PRESENT: ascites Rectal exam: PRESENT: deferred Extremities exam: PRESENT: full ROM, other Musculoskeletal exam: PRESENT: normal inspection Neurological exam: PRESENT: alert, altered, awake, CN II-XII grossly intact. ABSENT: motor sensory deficit Psychiatric exam: PRESENT: appropriate affect, normal mood. ABSENT: homicidal ideation, suicidal ideation Skin exam: PRESENT: dry, intact, warm, other - left hip incision dressing with moderate amount of serous drainage. ABSENT: cyanosis, rash Results Laboratory Results: 08/23/16 05:47 08/22/16 06:13 08/14/16 08/15/16 10:30 08:20 CK-MB (CK-2) 3.67 2.06 Impressions: Chest X-Ray 08/13/16 00:00 IMPRESSION: NO ACUTE RADIOGRAPHIC FINDING IN THE CHEST. Femur X-Ray 08/13/16 16:40 IMPRESSION: INTERTROCHANTERIC FEMUR FRACTURE LEFT HIP. Fluoroscopy 08/20/16 00:00 IMPRESSION: IMAGE(S) OBTAINED DURING PROCEDURE. Hip X-Ray 08/20/16 00:00 IMPRESSION: IMAGE(S) OBTAINED DURING PROCEDURE. Assessment & Plan - Diagnosis (1) Fracture, intertrochanteric, left femur Qualifiers: Encounter type: subsequent encounter Fracture type: closed Is this a current diagnosis for this admission?: YesPlan: Patient underwent ORIF of left hip by Dr Smith. POD # 4. Will be ready for discharge once SNF bed is available (2) Hypernatremia Is this a current diagnosis for this admission?: YesPlan: Appears to be from dehydration. She was rehydrated with 1/2 NS IV solution and resolved (3) Dementia Qualifiers: Dementia type: unspecified type Dementia behavioral disturbance: without behavioral disturbance Qualified Code(s): F03.90 - Unspecified dementia without behavioral disturbance Is this a current diagnosis for this admission?: YesPlan: Patient will [facility] vascular dementia at baseline per daughter who is at the bedside (4) Acute renal failure Is this a current diagnosis for this admission?: YesPlan: Appears to be prerenal due to dehydration, Improved with IV hydration (5) Acute blood loss anemia Is this a current diagnosis for this admission?: YesPlan: Most likely secondary to blood loss from hip fracture will continue to monitor. This has been stable - Time Time Spent with patient: 25-34 minutes Critical Time spent with patient: 15-24 minutes Anticipated discharge: SNF Within: when bed available
[2016-08-24] MEDS: TRAZODONE HCL 50 MG TABLET PO SCH (22:07)
[2016-08-24] MEDS: DONEPEZIL HCL 5 MG TABLET PO SCH (22:08)
[2016-08-25] MEDS: HEPARIN SOD (PORCINE) 5,000 UNIT/ML 1 ML SYRINGE SUBCUT SCH ×2 (05:43→15:28)
--- NOTE | 2016-08-25 08:10 | PDOC TRANSFER SUMMARY ---
General - Admit/Disc Date/PCP Admission Date/Primary Care Provider: 08/13/16 20:33 SETH FERNANDEZ Discharge Date: 08/25/16 - Discharge Diagnosis (1) Fracture, intertrochanteric, left femur Is this a current diagnosis for this admission?: YesSummary: SP left hip ORIF on 08/20/2016. Unable to follow instructions with PT (2) Hypernatremia Is this a current diagnosis for this admission?: YesSummary: Resolved with hydration (3) Dementia Is this a current diagnosis for this admission?: YesSummary: Continue medications. Patient is nonverbal. Family is involved in care (4) Acute renal failure Is this a current diagnosis for this admission?: YesSummary: Resolved (5) Acute blood loss anemia Is this a current diagnosis for this admission?: YesSummary: Stable and improving post operatively - Additional Information Resuscitation Status: Do Not Resuscitate Discharge Diet: Regular - pureed Discharge Activity: Activity As Tolerated Home Medications: Donepezil HCl [Aricept] 10 mg PO QHS 11/11/11 Ergocalciferol (Vitamin D2) [Vitamin D] 50,000 unit PO ASDIR PRN 11/11/11 Memantine HCl [Namenda 10 mg Tablet] 10 mg PO BID 11/11/11 Cyanocobalamin (Vitamin B-12) [B-12] 500 mcg PO DAILY 08/13/16 Lisinopril 20 mg PO DAILY 08/13/16 Acetaminophen [Tylenol 325 mg Tablet] 650 mg PO Q4HP PRN tablet 08/25/16 Docusate Sodium [Colace 100 mg Capsule] 100 mg PO Q12 capsule 08/25/16 Lorazepam [Ativan 1 mg Tablet] 1 mg PO Q6HP PRN #20 tablet 08/25/16 Magnesium Hydroxide [Milk of Magnesia 30 ml Udcup] 30 ml PO HSP PRN udc Trazodone HCl [Desyrel 50 mg Tablet] 25 mg PO QHS tablet 08/25/16 Valsartan [Diovan 40 mg Tablet] 40 mg PO DAILY tablet 08/25/16 History of Present Illness Admission Date/PCP: 08/13/16 20:33 SETH FERNANDEZ Patient complains of: Patient noted to have bruising on left thigh, externally rotated and shortened left leg by nursing staff History of Present Illness: TOYA DINERO is a 81 year old female who is a [facility] , with a history of end-stage dementia essentially nonverbal requiring 100% assistance in ADLs. According to the patient's son she was ambulatory but required maximal assistance and has not independently for years. Patient was then found by the [facility] staff with bruising and pain localized to the left hip. She was subsequently brought to the emergency room for evaluation and found to have a left-sided hip fracture. Patient was admitted by the hospitalist. Unable to obtain full history of present illness given patient's mental status. Hospital Course Hospital Course: Patent was admitted to the hospitalist service on 08/14/2016. She was seen in consult by Dr Ramirez of orthopedics for her left hip fracture. She appeared to have no pain related to the left hip fracture. He suggested PT to get her out of bed to see if she had pain the following day. 08/15 the patient was seen by PT, due to dementia she was unable to participate actively in therapy. She was transferred out of bed to the chair and again appeared to have no pain. He recommended due to her extreme dementia forgoing operative repair. Patient's family was in agreement. On 08/18 the patient's three children met and decided they would like to give their mother the chance to walk again and asked for a second opinion by Dr Smith. He saw the patient on 08/19 and agreed to take patient to the OR for orif of her left hip. Echo was obtained which showed no contraindications to proceed with surgery. The patient was taken to the OR on 08/20/2016 for ORIF of left hip. The patient has had PT post operatively but is again unable to participate due to dementia. Her daughter has been active in her care helping to feed patient at meal times. Patient has a very good appetite and consumes 100% of meals. Family asked if speech therapy could see patient to see if she could have regular meals rather than pureed. Speech recommends to continue pureed due to patient's mentation. Physical Exam Vital Signs: Temp Pulse Resp BP Pulse Ox 99.2 F 86 17 138/74 H 98 08/25/16 03:40 08/25/16 03:40 08/25/16 03:40 08/25/16 03:40 08/25/16 03:40 Intake & Output 08/24/16 08/25/16 08/26/16 06:59 06:59 06:59 Intake Total 500 716 Balance 500 716 Weight 93.6 kg 94.2 kg General appearance: PRESENT: no acute distress, obese, well-developed, well- nourished Head exam: PRESENT: atraumatic, normocephalic Eye exam: PRESENT: conjunctiva pink, EOMI, PERRLA. ABSENT: scleral icterus Ear exam: PRESENT: normal external ear exam Mouth exam: PRESENT: moist, tongue midline Neck exam: ABSENT: carotid bruit, JVD, lymphadenopathy, thyromegaly Respiratory exam: PRESENT: clear to auscultation montse. ABSENT: rales, rhonchi, wheezes Cardiovascular exam: PRESENT: RRR. ABSENT: diastolic murmur, rubs, systolic murmur Pulses: PRESENT: normal dorsalis pedis pul GI/Abdominal exam: PRESENT: normal bowel sounds, soft. ABSENT: distended, guarding, mass, organolmegaly, rebound, tenderness Rectal exam: PRESENT: deferred Extremities exam: PRESENT: full ROM. ABSENT: calf tenderness, clubbing, pedal edema Musculoskeletal exam: PRESENT: full ROM, normal inspection Neurological exam: PRESENT: alert, altered, awake, CN II-XII grossly intact, aphasic Psychiatric exam: PRESENT: flat affect Skin exam: PRESENT: dry, intact, warm, other - left hip dressing,. ABSENT: cyanosis, rash Results Laboratory Results: 08/23/16 05:47 08/22/16 06:13 08/14/16 08/15/16 10:30 08:20 CK-MB (CK-2) 3.67 2.06 Impressions: Chest X-Ray 08/13/16 00:00 IMPRESSION: NO ACUTE RADIOGRAPHIC FINDING IN THE CHEST. Femur X-Ray 08/13/16 16:40 IMPRESSION: INTERTROCHANTERIC FEMUR FRACTURE LEFT HIP. Fluoroscopy 08/20/16 00:00 IMPRESSION: IMAGE(S) OBTAINED DURING PROCEDURE. Hip X-Ray 08/20/16 00:00 IMPRESSION: IMAGE(S) OBTAINED DURING PROCEDURE. Transfer Plan - Disposition Transfer Plan: Patient will be transferred to [facility] for [facility] care and PT Qualifiers [facility] BEING DISCHARGED WITH ANY OF THE FOLLOWING DIAGNOSIS?: No
[2016-08-25] MEDS: ACETAMINOPHEN 325 MG TABLET PO PRN (09:37)
[2016-08-25] MEDS: MEMANTINE HCL 10 MG TABLET PO SCH (09:37)
[2016-08-25] MEDS: DOCUSATE SODIUM 100 MG CAPSULE PO SCH (09:37)
[2016-08-25] MEDS: VALSARTAN 40 MG TABLET PO SCH (09:37)
[2016-08-25] MEDS: CYANOCOBALAMIN (VITAMIN B-12) 1,000 MCG TABLET PO SCH (09:38)
[2016-08-25 16:38] VITALS: BP 115/63
[2016-09-09] MEDS ORDERED: ERGOCALCIFEROL (VITAMIN D2) 50000 UNIT (1.25 MG) CAPSULE PO SCH (09:00)
== END 2016-08-25 20:02 | DRG 481 ==
LOC: ER 16:35 → EH 20:33 → UNDOADMIN 20:56 → EH 20:56 → 4S 22:42
PROVIDERS: ADMIT Internal Medicine; ATTEND Internal Medicine
PROC: 0QS704Z Reposition Left Upper Femur with Internal Fixation Device, Open Approach (ICD-10-PCS; principal; 2016-08-20 09:30)
PROC: 3E0234Z Introduction of Serum, Toxoid and Vaccine into Muscle, Percutaneous Approach (ICD-10-PCS; 2016-08-25)
DX: S72.142A Displaced intertrochanteric fracture of left femur, initial encounter for closed fracture (principal); E87.0 Hyperosmolality and hypernatremia; N17.9 Acute kidney failure, unspecified; D62 Acute posthemorrhagic anemia; M62.82 Rhabdomyolysis; F01.50 Vascular dementia, unspecified severity, without behavioral disturbance, psychotic disturbance, mood disturbance, and anxiety; X58.XXXA Exposure to other specified factors, initial encounter; Z66 Do not resuscitate; E86.0 Dehydration; I10 Essential (primary) hypertension; Z90.49 Acquired absence of other specified parts of digestive tract; Z90.710 Acquired absence of both cervix and uterus; E66.9 Obesity, unspecified; Z23 Encounter for immunization
CPT/HCPCS: 01230; 36415; 71010; 80048; 80053; 81001; 82553; 85025; 85610; 85730; 90686; 93005; 93010; 93306; 99285; G8978-GP; G8979-GP; G8996-GN; G8997-GN; G8998-GN; J0690; J0696; J1644; J2250; J2704; J3010; J3490; J7030; J7120

== ENCOUNTER 2017-02-17 15:43 | Emergency (ER) | payer MEDICARE, OTHER ==
--- NOTE | 2017-02-17 16:08 | ER Document Report ---
ED General - General Stated Complaint: RESPIRATORY EVAL Time Seen by Provider: 02/17/17 15:51 Mode of Arrival: Stretcher Information source: Patient, Relative - daughterCecy TRAVEL OUTSIDE OF THE [place] IN LAST 30 DAYS: No - HPI Patient complains to provider of: Difficulty breathing Onset: Just prior to arrival Onset/Duration: Sudden Quality of pain: No pain Associated symptoms: Shortness of breath Exacerbated by: Denies Relieved by: Denies Notes: Patient is an 81-year-old female resident of a local long-term, who was brought to the emergency room by EMS after daughter noted her to have difficulty breathing, states that she had a normal morning, ate her lunch without difficulty, she was chewing on a piece of squash for quite a long time, so daughter had her drink some water and then some pudding afterwards which she seemed to intake without any difficulty, shortly thereafter she attempted to lay back on a recliner and was having some rapid shallow breathing and was diaphoretic, by the time EMS arrived symptoms seem to been resolved and patient had normal stable vital - Related Data Allergies/Adverse Reactions: No Known Allergies Allergy (Verified 08/08/16 09:13) Past Medical History - General Information source: Relative - Social History Smoking Status: Never Smoker Family History: Other - Dementia - Past Medical History Cardiac Medical History: Reports: Hx Hypertension Pulmonary Medical History: Reports: Hx Pneumonia Psychiatric Medical History: Reports: Hx Dementia Past Surgical History: Reports: Hx Cholecystectomy, Hx Hysterectomy - Immunizations Hx Diphtheria, Pertussis, Tetanus Vaccination: Yes Review of Systems - Review of Systems Constitutional: No symptoms reported EENT: No symptoms reported Cardiovascular: No symptoms reported Respiratory: See HPI Gastrointestinal: No symptoms reported Genitourinary: No symptoms reported Female Genitourinary: No symptoms reported Musculoskeletal: No symptoms reported Skin: No symptoms reported Hematologic/Lymphatic: No symptoms reported Neurological/Psychological: No symptoms reported -: Yes All other systems reviewed and negative Physical Exam - Vital signs Vitals: Pulse Resp Pulse Ox 85 20 95 02/17/17 15:58 02/17/17 15:58 02/17/17 15:58 Interpretation: Normal - General General appearance: Appears well, Alert - HEENT Head: Normocephalic, Atraumatic Eyes: Normal Conjunctiva: Normal Extraocular movements intact: Yes Eyelashes: Normal Pupils: PERRL - Respiratory Respiratory status: No respiratory distress Chest status: Nontender Breath sounds: Normal Chest palpation: Normal - Cardiovascular Rhythm: Regular Heart sounds: Normal auscultation Murmur: No - Abdominal Inspection: Normal Distension: No distension Bowel sounds: Normal Tenderness: Nontender Organomegaly: No organomegaly - Back Back: Normal, Nontender - Extremities General upper extremity: Normal inspection, Nontender, Normal color, Normal ROM , Normal temperature General lower extremity: Normal inspection, Nontender, Normal color, Normal ROM , Normal temperature, Normal weight bearing. No: Melanie's sign - Neurological Neuro grossly intact: Yes Cognition: Confused [place] Coma Scale Eye Opening: Spontaneous [place] Coma Scale Verbal: Confused [place] Coma Scale Motor: Obeys Commands Yolanda Coma Scale Total: 14 Motor strength normal: LUE, RUE, LLE, RLE Sensory: Normal - Skin Skin Temperature: Warm Skin Moisture: Dry Skin Color: Normal Course - Re-evaluation Re-evalutation: 02/17/17 18:39 Patient has been resting comfortably with stable vital signs, daughter and son at bedside reports she is at her baseline mental status at this time, she has had no further episodes of any respiratory issues since being in the emergency room, lab findings are consistent with a urinary tract infection, this was discussed with family members at bedside, she will be discharged with antibiotics and advised to follow-up, family members acknowledge understanding and agreement with this plan - Vital Signs Vital signs: Temp Pulse Resp BP Pulse Ox 85 20 98 02/17/17 15:58 02/17/17 15:58 02/17/17 16:07 - Laboratory Result Diagrams: 02/17/17 16:50 02/17/17 16:50 Laboratory results interpreted by me: 02/17/17 02/17/17 02/17/17 16:50 16:50 17:45 RDW 15.1 H Est GFR (Non-Af Amer) 54 L Ur Leukocyte Esterase LARGE H Urine Ascorbic Acid 40 H - Diagnostic Test Radiology reviewed: Image reviewed, Reports reviewed - EKG Interpretation by Me EKG shows normal: Sinus rhythm Rate: Normal Rhythm: NSR When compared to previous EKG there are: No significant change Discharge - Discharge Clinical Impression: UTI (urinary tract infection) Qualifiers: Urinary tract infection type: site unspecified Hematuria presence: without hematuria Qualified Code(s): N39.0 - Urinary tract infection, site not specified Condition: Stable Disposition: HOME, SELF-CARE Instructions: Urinary Tract Infection ([facility]), Cephalexin ([facility]) Additional Instructions: Follow up with your primary care provider in one to 2 days. Return to the emergency room immediately if symptoms worsen or any additional concerns. Prescriptions: Cephalexin Monohydrate [Keflex 500 mg Capsule] 500 mg PO BID #20 capsule
--- NOTE | 2017-02-17 17:01 | RADIOLOGY REPORT (SQ) ---
EXAM DESCRIPTION: CHEST PA/LAT COMPLETED DATE/TIME: 02/17/2017 4:39 pm REASON FOR STUDY: cough COMPARISON: 01/07/2016 EXAM PARAMETERS: NUMBER OF VIEWS: two views TECHNIQUE: Digital Frontal and Lateral radiographic views of the chest acquired. RADIATION DOSE: NA LIMITATIONS: none FINDINGS: LUNGS AND PLEURA: Low lung volumes results in bronchovascular crowding. No opacities, mas ses or pneumothorax. No pleural effusion. MEDIASTINUM AND HILAR STRUCTURES: No masses or contour abnormalities. HEART AND VASCULAR STRUCTURES: The cardiomediastinal silhouette appears grossly stable. No evidence for failure. BONES: No acute findings. HARDWARE: None in the chest. OTHER: No other significant finding. IMPRESSION: NO SIGNIFICANT RADIOGRAPHIC FINDING IN THE CHEST. TECHNICAL DOCUMENTATION: JOB ID: [id number] [employer]- All Rights Reserved
[2017-02-17 17:12] LABS: ABSOLUTE EOSINOPHILS # (AUTO) 0.1 10^3/uL (0.0-0.6); ABSOLUTE LYMPHOCYTES (AUTO) 1.1 10^3/uL (0.5-4.7); ABSOLUTE MONOCYTES (AUTO) 0.4 10^3/uL (0.1-1.4); ABSOLUTE NEUT (AUTO) 4.9 10^3/uL (1.7-8.2); BASOPHILS % (AUTO) 0.5 % (0-2); EOSINOPHILS % (AUTO) 1.3 % (0-6); HEMATOCRIT 46.2 % (36.0-47.0); HEMOGLOBIN 15.1 g/dL (12.0-15.5); HGB HCT DIFFERENCE -0.9; LYMPHOCYTES % (AUTO) 16.2 % (13-45); MEAN CORPUSCULAR HEMOGLOBIN 29.9 pg (27.0-33.4); MEAN CORPUSCULAR HGB CONC 32.6 g/dL (32.0-36.0); MEAN CORPUSCULAR VOLUME 92 fl (80-97); MONOCYTES % (AUTO) 6.9 % (3-13); RED BLOOD COUNT 5.04 10^6/uL (3.72-5.28); RED CELL DISTRIBUTION WIDTH 15.1 % (11.5-14.0); SEGMENTED NEUTROPHILS % (AUTO) 75.1 % (42-78); WHITE BLOOD COUNT 6.5 10^3/uL (4.0-10.5)
[2017-02-17 17:36] LABS: ALANINE AMINOTRANSFERASE 21 U/L (9-52); ALBUMIN 3.9 g/dL (3.5-5.0); ALKALINE PHOSPHATASE 91 U/L (38-126); ANION GAP 13 (5-19); ASPARTATE AMINO TRANSFERASE 22 U/L (14-36); BILIRUBIN,DIRECT 0.2 mg/dL (0.0-0.4); BILIRUBIN,TOTAL 0.5 mg/dL (0.2-1.3); BLOOD UREA NITROGEN 15 mg/dL (7-20); CALCIUM 9.1 mg/dL (8.4-10.2); CARBON DIOXIDE 27 mmol/L (22-30); CHLORIDE 103 mmol/L (98-107); CREATINE KINASE 75 U/L (30-135); CREATININE RESULT 0.98 mg/dL (0.52-1.25); GLUCOSE 88 mg/dL (75-110); POTASSIUM 4.5 mmol/L (3.6-5.0); SODIUM 143.3 mmol/L (137-145); TOTAL PROTEIN 7.1 g/dL (6.3-8.2)
[2017-02-17 17:48] LABS: CREATINE KINASE MB 3.15 ng/mL (<4.55)
[2017-02-17 17:50] LABS: TROPONIN I < 0.012 ng/mL
[2017-02-17 18:29] LABS: APPEARANCE,URINE SLIGHTLY-CLOUDY; BILIRUBIN,URINE NEGATIVE (NEGATIVE); GLUCOSE, URINE NEGATIVE (NEGATIVE); KETONES,URINE NEGATIVE (NEGATIVE); LEUKOCYTE ESTERASE,URINE LARGE (NEGATIVE); NITRITE,URINE NEGATIVE (NEGATIVE); PROTEIN,URINE NEGATIVE (NEGATIVE); URINE SPECIFIC GRAVITY 1.009; UROBILINOGEN,URINE NEGATIVE mg/dL (<2.0)
[2017-02-17] MEDS ORDERED: CEPHALEXIN 500 MG CAPSULE PO ONE (18:39)
--- NOTE | 2017-02-17 22:23 | EKG REPORT ---
SEVERITY:- ABNORMAL ECG - SINUS RHYTHM PROBABLE LEFT ATRIAL ABNORMALITY LEFT ANTERIOR FASCICULAR BLOCK CONSIDER ANTERIOR INFARCT : Confirmed by: Gale Hernandez 17-Feb-2017 22:22:57
== END 2017-02-17 20:40 | disposition home or self-care (01) ==
LOC: ER 15:43
DX: N39.0 Urinary tract infection, site not specified (principal); R06.00 Dyspnea, unspecified; R06.02 Shortness of breath; I10 Essential (primary) hypertension; Z90.49 Acquired absence of other specified parts of digestive tract; Z90.710 Acquired absence of both cervix and uterus
CPT/HCPCS: 93005; 99285; 51701; 36415; 87086; 82553; 82550; 85025; 87088; 80053; 81001; 84484; 87186; 83880; 71020; 93010; A9270

== ENCOUNTER 2020-08-08 20:48 | Emergency (ER) | payer MEDICARE ==
--- NOTE | 2020-08-08 21:50 | ER Document Report ---
ED Medical Screen (RME) - General Chief Complaint: Fall Injury Stated Complaint: UNRESPONSIVE Time Seen by Provider: 08/08/20 21:38 Primary Care Provider: SETH FERNANDEZ MD [Primary Care Provider] - Follow up as needed Notes: Patient is nonverbal at a nursing facility for hospice. Patient was found on the floor facedown with her neck over the legs of a bedside table. Patient had possibly been there for about 2 hours. Patient with bruising to the left chin and longoria across her neck with a skin tear of the right forearm. Report received from bibianaing RN who took report from the paramedics as patient is nonverbal. I have greeted and performed a rapid initial assessment of this patient. A comprehensive ED assessment and evaluation of the patient, analysis of test results and completion of the medical decision making process will be conducted by additional ED providers. TRAVEL OUTSIDE OF THE [place] IN LAST 30 DAYS: No - Related Data Allergies/Adverse Reactions: No Known Allergies Allergy (Verified 08/08/16 09:13) Past Medical History - Social History Frequency of alcohol use: None Drug Abuse: None - Past Medical History Cardiac Medical History: Reports: Hx Hypertension Pulmonary Medical History: Reports: Hx Pneumonia Psychiatric Medical History: Reports: Hx Dementia Past Surgical History: Reports: Hx Cholecystectomy, Hx Hysterectomy - Immunizations Hx Diphtheria, Pertussis, Tetanus Vaccination: Yes Physical Exam - Vital signs Vitals: Temp 98.0 F 08/08/20 20:49 - Notes Notes: Ecchymosis to the left chin, patient resting with eyes closed, respirations unlabored Course - Vital Signs Vital signs: Temp Pulse Resp BP Pulse Ox 98.0 F 08/08/20 20:49 Doctor's Discharge - Discharge Referrals: SETH FERNANDEZ MD [Primary Care Provider] - Follow up as needed
--- NOTE | 2020-08-08 21:57 | ER Document Report ---
ED General - General Chief Complaint: Fall Injury Stated Complaint: UNRESPONSIVE Time Seen by Provider: 08/08/20 21:38 Primary Care Provider: SETH FERNANDEZ MD [Primary Care Provider] - Follow up as needed TRAVEL OUTSIDE OF THE [place] IN LAST 30 DAYS: No - HPI Context: Chief Complaint: [Fall] [This is a 85-year-old female staying at a nursing facility for hospice care related to her dementia who presents by EMS after apparently having fallen out of her bed and was found facedown on the floor of the facility. EMS reports that patient had her neck hanging over the legs of the bedside table. EMS states that there was speculation that the patient may have been on the floor for approximately 2 hours. Patient is nonverbal and unable to relate history. History is also limited because fall was not witnessed. ] History obtained from EMS Symptoms began:[Approximately 2 hours ago] Onset: [Unknown] Timing: [Approximately 2 hours ago] Quality: [Patient nonverbal] Intensity: [Patient nonverbal] Location: [Face and left forearm] Radiation: [None] Aggravating factors: Unknown Relieving factors: Unknown - Related Data Allergies/Adverse Reactions: No Known Allergies Allergy (Verified 08/08/16 09:13) Past Medical History - General Information source: Relative, Emergency Med Personnel - Social History Smoking Status: Never Smoker Frequency of alcohol use: None Drug Abuse: None Family History: Other - Dementia - Past Medical History Cardiac Medical History: Reports: Hx Hypertension Pulmonary Medical History: Reports: Hx Pneumonia Psychiatric Medical History: Reports: Hx Dementia Past Surgical History: Reports: Hx Cholecystectomy, Hx Hysterectomy - Immunizations Hx Diphtheria, Pertussis, Tetanus Vaccination: Yes Review of Systems - Review of Systems -: Yes ROS unobtainable due to patient's medical condition Physical Exam - Vital signs Vitals: Temp 98.0 F 08/08/20 20:49 - Notes Notes: CONSTITUTIONAL [Vital signs reviewed, patient is awake. Patient is nonverbal.] HEAD Normocephalic. Patient has a area of ecchymosis on her left chin] EYES [Eyes are normal to inspection, No discharge from eyes, Sclera are normal, Conjunctiva are normal.] ENT [External ears normal to inspection, Nose examination normal, external mouth normal to inspection.] NECK [Normal ROM, No jugular venous distention, No meningeal signs, no tenderness, deformity or step-off] RESPIRATORY CHEST [Chest is nontender, Breath sounds normal, No respiratory distress.] CARDIOVASCULAR [RRR, No murmurs, Normal S1 S2, No rub, No gallop.] ABDOMEN [Abdomen is nontender, No pulsatile masses, No other masses, Bowel sounds normal, No distension, No peritoneal signs, No hernias.] BACK [There is no CVA Tenderness, There is no tenderness to palpation, Normal inspection.] UPPER EXTREMITY No cyanosis, No clubbing, No edema, no deformities present. Skin tear is present on left forearm LOWER EXTREMITY No cyanosis, No clubbing, No edema, No calf tenderness, NEURO Patient is nonverbal, not following commands] SKIN [Skin is warm, Skin is dry, facial ecchymosis and skin tear as noted above] PSYCHIATRIC Flat affect. ] Course - Re-evaluation Re-evalutation: 08/09/20 07:07 Results of ED MSE discussed with patient's family. All questions were answered prior to discharge. Emergency signs and symptoms, reasons to return to the em ergency department discussed with patient's family - Vital Signs Vital signs: Temp Pulse Resp BP Pulse Ox 97.5 F 96 20 120/86 H 100 08/09/20 04:18 08/09/20 04:18 08/09/20 04:18 08/09/20 04:18 08/09/20 04:18 - Laboratory Results Result Diagrams: 08/08/20 23:20 08/08/20 23:20 Laboratory Results Interpreted: 08/08/20 08/08/20 23:20 23:20 WBC 10.8 H Hgb 10.8 L Hct 34.1 L MCH 25.3 L MCHC 31.6 L RDW 20.9 H Seg Neuts % (Manual) 87 H Lymphocytes % (Manual) 5 L Abs Neuts (Manual) 9.4 H Glucose 131 H Critical Laboratory Results Reviewed: No Critical Results Attending or Supervising Physician who Reviewed Labs: MOLLY ABEBE IV - Radiology Results Critical Radiology Results Reviewed: No Critical Results Attending or Supervising Physician who Reviewed Radiology: MOLLY ABEBE IV Discharge - Discharge Clinical Impression: Fall Qualifiers: Encounter type: initial encounter Qualified Code(s): W19.XXXA - Unspecified fall, initial encounter Contusion of face Qualifiers: Encounter type: initial encounter Qualified Code(s): S00.83XA - Contusion of other part of head, initial encounter Skin tear of forearm without complication Qualifiers: Encounter type: initial encounter Laterality: unspecified laterality Qualified Code(s): S51.819A - Laceration without foreign body of unspecified forearm, initial encounter Condition: Stable Disposition: HOSPICE CENTER Additional Instructions: Return to the Emergency Department without delay if any worse. HOME CARE INSTRUCTIONS & INFORMATION: Thank you for choosing us for your medical needs. We hope you're satisfied with the care you received. After you leave, you must properly care for your problem and, at the same time, observe its progress. Any condition can change. Some illnesses can change rapidly over hours or days. If your condition worsens, return to the Emergency Department or see your physician promptly. ABOUT YOUR X-RAYS AND EKG'S: If you had an EKG or X-rays taken, they have been read by the Emergency Physician. The X-rays and EKG's will also be read by a Radiologist or Brick Stacker within 24 hours. If discrepancies are noted, you will be notified by telephone. Please be certain the ED has a correct telephone number & address where you can be reached. Also, realize that some fractures or abnormalities do not show up on initial X-rays. If your symptoms continue, see your physician. ABOUT YOUR LABORATORY TEST: If you had laboratory tests, the results have been reviewed by the Emergency Physician. Some test results (for example cultures) may not be available for several days. You will be contacted if any test result shows you need additional treatment. Please be certain the ED has a correct telephone number and address where you can be reached. ABOUT YOUR MEDICATIONS: You will receive instructions on how to take your medicine on the prescription label you receive. Additional information may be provided by the Pharmacy. If you have questions afterwards, call the ED for clarification or further instructions. Some prescribed medications may cause drowsiness. Do not perform tasks such as driving a car or operating machinery without consulting your Pharmacist. If you feel you need a refill of pain medication, your condition will need re-evaluation. Please do not call for a refill of any medication. ABOUT YOUR SIGNATURE: Signature of this document acknowledges to followin. Understanding that you received emergency treatment and that you may be released before al medical problems are known or treated. Please be certain the ED has a correct phone number & address where you can be reached. 2. Acknowledgement that you will arrange for follow-up care as recommended. 3. Authorization for the Emergency Physician to provide information to your follow-up Physician in order to maximize your care. AT ANY TIME, IF YOUR SYMPTOMS CHANGE SIGNIFICANTLY OR WORSEN OR YOU DEVELOP NEW SYMPTOMS, RETURN TO THE EMERGENCY DEPARTMENT IMMEDIATELY FOR RE-EVALUATION. OUR GOAL IS TO PROVIDE EXCELLENT MEDICAL CARE! WE HOPE THAT WE HAVE MET YOUR EXPECTATIONS DURING YOUR EMERGENCY DEPARTMENT VISIT AND THAT YOU FEEL YOU HAVE RECEIVED EXCELLENT CARE! Contusion Your injury has resulted in a contusion -- a crushing of the deep tissues. No injury to important structures was detected during the physician's exam. Contusions vary in the amount of pain they cause, and in the length of time required for healing. Typically, the area will become bruised, and will remain painful to touch for two or three weeks. However, most patients are back to working and playing within a few days. After the initial period of rest and cold-packs, your symptoms (together with the doctor's recommendations) will determine how rapidly you can get back to full activity. Usually this means "do what feels okay, but don't do things that hurt." If re-examination was recommended, it's important to follow up as instructed. Call the doctor or return any time if pain increases, if swelling becomes severe, if you develop numbness or weakness in an injured extremity, or if any other alarming symptoms occur. Skin Tear Your wound is a skin tear. These wounds are difficult and sometimes impossible to suture because the skin is so fragile that it may not hold the sutures. The skin condition can be due to aging and sometimes medications. The best care for such skin tears is sometimes to not try to suture them. Rather, it is best to position the skin as closely as possible to its original location and apply a bandage that can remain in place for several days at a time and sometimes these bandages are left in place until the wound has healed. Most skin tears will heal in about two weeks. Because they are so difficult to care for, skin tears should be expected to leave some scarring. Referrals: SETH FERNANDEZ MD [Primary Care Provider] - Follow up as needed
[2020-08-08] MEDS ORDERED: MORPHINE SULFATE 10 MG/ML INJ IV ONE (22:36)
[2020-08-08] MEDS ORDERED: ONDANSETRON HCL INJ/PF 4 MG/2 ML SDV IV ONE (22:37)
[2020-08-08 23:59] LABS: HEMATOCRIT 34.1 % (36.0-47.0); HEMOGLOBIN 10.8 g/dL (12.0-15.5); MEAN CORPUSCULAR HEMOGLOBIN 25.3 pg (27.0-33.4); MEAN CORPUSCULAR HGB CONC 31.6 g/dL (32.0-36.0); MEAN CORPUSCULAR VOLUME 80 fl (80-97); PLATELET COUNT 250 10^3/uL (150-450); RED BLOOD COUNT 4.26 10^6/uL (3.72-5.28); RED CELL DISTRIBUTION WIDTH 20.9 % (11.5-14.0); WHITE BLOOD COUNT 10.8 10^3/uL (4.0-10.5)
[2020-08-09 00:22] LABS: ANION GAP 7 (5-19); BLOOD UREA NITROGEN 14 mg/dL (7-20); CALCIUM 8.4 mg/dL (8.4-10.2); CARBON DIOXIDE 28 mmol/L (22-30); CHLORIDE 104 mmol/L (98-107); CREATINE KINASE 71 U/L (30-135); GLUCOSE 131 mg/dL (75-110); POTASSIUM 4.6 mmol/L (3.6-5.0)
[2020-08-09 00:30] LABS: ABSOLUTE LYMPHOCYTES# (MANUAL) 0.5 10^3/uL (0.5-4.7); ABSOLUTE MONOCYTES # (MANUAL) 0.9 10^3/uL (0.1-1.4); BASOPHILS % (MANUAL) 0 % (0-2); EOSINOPHILS % (MANUAL) 0 % (0-6); LYMPHOCYTES % (MANUAL) 5 % (13-45); MONOCYTES % (MANUAL) 8 % (3-13); SEGMENTED NEUTROPHILS % (MAN) 87 % (42-78); TOTAL CELLS COUNTED 100
[2020-08-09 00:31] LABS: ANISOCYTOSIS 2+; PLATELET COMMENT ADEQUATE
[2020-08-09 00:32] LABS: OVALOCYTES 1+; POLYCHROMASIA SLIGHT
[2020-08-09 00:34] LABS: HYPOCHROMASIA SLIGHT; SCHISTOCYTES SLIGHT
--- NOTE | 2020-08-09 00:36 | RADIOLOGY REPORT (SQ) ---
EXAM DESCRIPTION: FOREARM RIGHT [facility]: XR FOREARM 2 VIEWS Views: 2 CLINICAL HISTORY: 85 years Female; fall; COMPARISON: None. FINDINGS: Negative for acute fracture, dislocation, or radiopaque foreign body. IMPRESSION: 1. No acute findings.
--- NOTE | 2020-08-09 01:39 | RADIOLOGY REPORT (SQ) ---
EXAM DESCRIPTION: CT HEAD WITHOUT CLINICAL HISTORY: 85 years Female, fall COMPARISON: CT head 08/08/2016 TECHNIQUE: Axial images of the head were performed without the use of intravenous contrast, with sagittal and coronal reformatted images. This exam was performed according to our departmental dose-optimization program which includes use of Automated Exposure Control, adjustment of the mA and/or kV according to patient size and/or use of iterative reconstruction technique. FINDINGS: No skull fracture. No intracranial bleed. No evidence of acute infarct. No evidence of mass. There is cortical atrophy and chronic white matter ischemic changes. There is possible mild hydrocephalus. There is no significant change, as compared with the prior CT scan. IMPRESSION: No skull fracture. No intracranial bleed. Cortical atrophy and chronic white matter ischemic changes. Possible mild hydrocephalus.
--- NOTE | 2020-08-09 01:42 | RADIOLOGY REPORT (SQ) ---
EXAM DESCRIPTION: CT CERVICAL SPINE WITHOUT CLINICAL HISTORY: 85 years Female, fall COMPARISON: None. TECHNIQUE: Axial images of the cervical spine were performed, without the use of intravenous contrast, with sagittal and coronal reformatted images This exam was performed according to our departmental dose-optimization program which includes use of Automated Exposure Control, adjustment of the mA and/or kV according to patient size and/or use of iterative reconstruction technique. FINDINGS: No fracture or dislocation. There are degenerative changes throughout the cervical spine. There is mild to moderate spinal stenosis in the lower cervical region. IMPRESSION: No fracture or dislocation.
--- NOTE | 2020-08-09 01:45 | RADIOLOGY REPORT (SQ) ---
EXAM DESCRIPTION: CT FACIAL AREA WITHOUT CLINICAL HISTORY: 85 years Female, fall COMPARISON: None. TECHNIQUE: Axial images of the facial bones were performed without the use of intravenous contrast, with sagittal and coronal reformatted images. This exam was performed according to our departmental dose-optimization program which includes use of Automated Exposure Control, adjustment of the mA and/or kV according to patient size and/or use of iterative reconstruction technique. FINDINGS: No fracture. There is partial opacification of the right mastoid air cells, raising the possibility of mastoiditis. There is mild sphenoid sinus disease. IMPRESSION: No fracture. Possible right-sided mastoiditis. Please correlate clinically.
[2020-08-09 04:06] VITALS: BP 120/86
== END 2020-08-09 04:15 | disposition hospice, inpatient (51) ==
LOC: ER 20:48
DX: S51.812A Laceration without foreign body of left forearm, initial encounter (principal); S00.83XA Contusion of other part of head, initial encounter; W06.XXXA Fall from bed, initial encounter; Y92.122 Bedroom in nursing home as the place of occurrence of the external cause; F03.90 Unspecified dementia, unspecified severity, without behavioral disturbance, psychotic disturbance, mood disturbance, and anxiety; I10 Essential (primary) hypertension
CPT/HCPCS: 99285; 96374; 96375; 36415; 82550; 85025; 80048; 73090; 70450; 70486; 72125; J2270; J2405